=== PATIENT | female | born 1940 | race Caucasian/White ===

== ENCOUNTER 2020-06-01 08:56 | Outpatient (CLI) | payer MEDICARE, OTHER, SELFPAY ==
--- NOTE | 2020-06-01 09:18 | CT_ITS ---
WS: [id number] CT ABDOMEN CONTRAST TECHNIQUE: Contrast enhanced CT of the abdomen with coronal and sagittal reformatted images. CLINICAL INFORMATION: LEFT UPPER QUADRANT PAIN COMPARISON: CT 12 24,011 DLP: 608.[address] scans at [facility] use at least one of these dose optimization techniques: automat ed exposure control; mA and/or kV adjustment per patient size (includes targeted exams where dose is matched to clinical indication); or iterative reconstruction. FINDINGS: Mild diffuse fatty infiltration of the liver. Portal vein and splenic vein are patent. Small esophage al hiatal hernia. Lung bases are well aerated. Splenic granulomas. Adrenal glands are normal. Normal gallbladder. Normal pancreas. Small bilateral renal cysts. Normal right renal parenchymal enhancement . No hydronephrosis in right kidney. Left renal atrophy unchanged since 2010. 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 Dilatation of the renal pelvis. A few small left renal cysts. Peripelvic renal cy sts. Normal caliber abdominal aorta. Aortic calcification. Tiny fat-containing umbilical hernia. Mild lumb ar curve. Pedicle screw fixation L2-3 with interbody fusion. Hardware appears intact. CT/CT abdomen w con* [id number] IMPRESSION: 1. Left renal atrophy with chronic UPJ obstruction and dilatation renal pelvis is unchanged since 2010. 2. Small bilateral renal cysts. No hydronephrosis in right kidney. 3. Diffuse fatty infiltration of the liver. 4. Small esophageal hiatal hernia. 5. Prior postoperative changes lumbar spine.
[2020-06-01] MEDS: iohexol 300 mg/mL 50 mL Btl PO (09:23)
[2020-06-01] MEDS: iodixanol 320 mg/mL 100mL Btl IV (10:00)
== END 2020-06-01 08:57 | disposition home or self-care (01) ==
LOC: RADWPI 09:02
PROVIDERS: Family Provider Internal Medicine; Visit Provider Internal Medicine
DX: N26.1 Atrophy of kidney (terminal) (principal); N28.1 Cyst of kidney, acquired; K76.0 Fatty (change of) liver, not elsewhere classified; K44.9 Diaphragmatic hernia without obstruction or gangrene
CPT/HCPCS: 74160; Q9967

== ENCOUNTER 2020-07-02 12:07 | Emergency (ER) | payer MEDICARE, OTHER, SELFPAY ==
[2020-07-02 12:18] VITALS: BP 129/80; PULSE 92; RESP 16; TEMP 36.6; O2SAT 98; BMI 22.1
[2020-07-02 12:50] VITALS: BP 125/78; PULSE 82; RESP 16; O2SAT 98
[2020-07-02 12:51] VITALS: BP 125/78; PULSE 85; RESP 16; O2SAT 98
[2020-07-02 13:05] LABS: Add Urine Microscopic? YES; Bilirubin Urine Neg (Negative); Blood Urine 2+ (Negative); Glucose Urine UA Norm (Normal); Ketones Urine Negative (Negative); Leukocyte Esterase Urine Negative (Negative); Nitrate Urine Negative (Negative); Protein Urine 1+ (Negative); Specific Gravity, Urine 1.005 (1.005-1.030); Urine Appearance Clear (CLEAR); Urine Color Yellow (Yellow); Urobilinogen Urine Norm (Negative); pH Urine 7 (5-7)
--- NOTE | 2020-07-02 13:06 | ED_ITS ---
HPI - Abdominal Pain General: Chief Complaint: Abdominal Pain Stated Complaint: AB/BACK PAIN, nauseous Time Seen by Provider: 07/02/20 12:38 Source: patient and family Mode of arrival: ambulatory Limitations: no limitations History of Present Illness: HPI narrative: Patient is a 79-year-old female who presents to ED today along with her daughter for complaints of abdominal pain. Patient tells me she has had abdominal pain for approximately 2 weeks now but daughter states patient was complaining of severe pain last night prompting their visit today. 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 They apparently have an appointment to see Dr. Love on 07/13. Patient tells me she is having a weekend urine stream but is still able to urinate normally. She has no sensation of bladder fullness after voiding. She is having normal bowel movements. No vomiting. No fevers. MD elicited complaint: abdominal pain Onset (ago): hour(s) Associated Symptoms: Denies change in stool character, diarrhea, dysuria, fever(s), nausea and vomiting Review of Systems Const: Denies: fever(s), chills, body aches or fatigue Card: Denies: chest pain Resp: Denies: dyspnea GI: Reports: abdominal pain; Denies: nausea, vomiting, diarrhea or change in stool character : Reports: other (reports weak urine stream); Denies: flank pain, dysuria, urinary urgency or urinary incontinence Musc: Denies: back pain Skin/Breast: Denies: rash Neuro: Denies: headache(s), numbness in extremities, weakness in extremities or sensory changes Physical Exam Const: COMMON NORMALS: no acute distress, average body habitus, patient oriented x3, no limitations, healthy appearing, alert and well nourished GENERAL APPEARANCE: cooperative ORIENTATION/CONSCIOUSNESS: Yes awake, Yes oriented to person, Yes oriented to place and Yes oriented to time Resp: COMMON NORMALS: normal respiratory effort and clear to auscultation bilaterally AUSCULTATION: clear to auscultation bilaterally Cardio: COMMON NORMALS: regular rate and regular rhythm RATE: regular rate RHYTHM: regular rhythm GI: COMMON NORMALS: Normal to inspection, nondistended, normoactive bowel sounds present, Soft to palpation, No hepatosplenomegaly present and no masses PALPATION: Yes Soft to palpation, Yes Tenderness to palpation present (GI) (diffuse abdominal tenderness ), Yes Guarding due to palpation present (GI) and Yes No hepatosplenomegaly present : COMMON NORMALS: Yes no CVA tenderness BLADDER/KIDNEY EXAM: Yes no CVA tenderness Back/Pelvis: COMMON NORMALS: no CVA tenderness Extremity: COMMON NORMALS: no pedal edema Neuro: COMMON NORMALS: patient oriented x3 SENSORIUM/ORIENTATION: Yes alert, Yes oriented to person, Yes oriented to place and Yes oriented to time Skin: COMMON NORMALS: no rashes or lesions noted GENERAL SKIN EXAM: no rashes or lesions noted Course ED course: Patient's last CT scan showing left renal atrophy with chronic UPJ obstruction and dilatation to the renal pelvis that is unchanged since 2010 Vital Signs: Vital signs: Vital Signs Temperature 97.9 F 07/02/20 12:18 Pulse Rate 76 07/02/20 14:41 Respiratory Rate 15 07/02/20 14:41 Blood Pressure 109/79 07/02/20 14:41 Pulse Oximetry 98 07/02/20 14:41 MDM - Abdominal Pain MDM Narrative: Medical decision making narrative: Patient's last CT scan does not mention anything regarding a urethral stricture. I believe daughter is mistaken as CT scan instead showed chronic UPJ obstruction. I spoke to Dr. Keen in regards to her CT findings today who assured me that her obstruction and hydronephrosis and atrophy of the kidney look identical today as they have p reviously. Recommend they continue to follow-up with her appointment as scheduled with Dr. Love. Patient's vital signs are stable. Her lab work is non-concerning at this time. UA does have a small amount of blood but does not appear infected. At this time patient is stable for discharge with return to ED precautions. Lab Data: Labs: Lab Results 07/02/20 07/02/20 07/02/20 Range/Units 12:40 12:45 12:45 WBC 6.7 (4.0-10.0) 10^3/ uL RBC 4.48 (4.1-5.3) 10^6/u L Hgb 14.2 (11.5-15.3) g/dL Hct 44.2 (37.0-47.0) % MCV 98.7 (81-99) fL MCH 31.7 (28.0-34.0) pg MCHC 32.1 (30.0-36.0) g/dL RDW 13.2 (12.1-15.1) % Plt Count 178 (130-400) 10^3/c mm MPV 11.7 H (7.4-10.4) fL Neut % (Auto) 55.3 % Lymph % (Auto) 33.7 % [place] % (Auto) 8.4 % Eos % (Auto) 1.5 % Baso % (Auto) 0.6 % Neut # (Auto) 3.68 (1.8-7.7) 10^3/u L Lymph # (Auto) 2.2 (0.8-4.8) 10^3/u L [place] # (Auto) 0.6 (0.2-0.9) 10^3/u L Eos # (Auto) 0.1 (0.0-0.8) 10^3/u L Baso # (Auto) 0.0 (0.0-0.1) 10^3/u L Nucleated RBC % (a uto) 0 % Nucleated RBCs # 0.0 /100WBC Sodium 141 (136-145) mmol/L Potassium 4.5 (3.5-5.1) mmol/L Chloride 102 (98-107) mmol/L Carbon Dioxide 31 H (22-29) mmol/L Anion Gap 12.5 (5-19) BUN 16 (8-23) mg/dL Creatinine 1.2 H (0.5-0.9) mg/dL GFR Calculation Not Reportable Glucose 101 (65-115) mg/dL Calculated Osmolal ity 293 (285-295) mOsm/k g Calcium 9.9 (8.5-10.5) mg/dL Total Bilirubin 0.3 (0.15-1.2) mg/dL AST 18 (0-32) U/L ALT 11 (0-33) U/L Alkaline Phosphata se 99 (35-105) IU/L Total Protein 7.6 (6.6-8.7) g/dL Albumin 4.1 (3.5-5.2) g/dL Globulin 3.5 (1.3-4.6) g/dL Urine Color Yellow (Yellow) Urine Appearance Clear (CLEAR) Urine pH 7 (5-7) Ur Specific Gravit y 1.005 (1.005-1.030) Urine Protein 1+ H (Negative) Urine Glucose (UA) Norm (Normal) Urine Ketones Negative (Negative) Urine Blood 2+ H (Negative) Urine Nitrate Negative (Negative) Urine Bilirubin Neg (Negative) Urine Urobilinogen Norm (Negative) mg/dL Ur Leukocyte Loretta ase Negative (Negative) Urine RBC 0-4 H (0-2) /hpf Urine WBC 0-4 H (0-5) /hpf Ur Squamous Epith Cells 0-4 H (0-5) /hpf Amorphous Sediment Not Reportable Urine Bacteria 1+ H (NONE) /hpf Hyaline Casts 0-4 H /lpf Imaging Data ^: CT Abd/Pel: Radiologist's impression: [address] [address] [address] Scan Report Signed Patient: Arabella Constantino Unit #: [id number] : 1940 Age/Sex: 79 / F ADM Date: 07/02/20 Loc: ER Room/Bed: Attending Dr: Ordering Provider/Ordering MD: Meghana Chen Date of Service: 07/02/20 Procedure(s): CT abdomen pelvis w con* [id number] Accession Number(s): [id number] Report Number: [id number] WS: [id number] CT ABDOMEN AND PELVIS WITH CONTRAST HISTORY: abdominal pain TECHNIQUE: Imaging performed of the abdomen and pelvis with IV contrast. Single phase imaging of the abdomen. Coronal and sagittal reformats are submitted. All CT scans at [facility] use at least one of these dose optimization techniques: automated exposure control; mA and/or kV adjustment per patient size (includes targeted exams where dose is matched to clinical indication); or iterative reconstruction. IV CONTRAST: Visipaque 320; 95 mL IV. Oral contrast: No DLP: 386.05 mGy.cm COMPARISON: 06/01/2020 Lower thorax: Chronic emphysema at the lung bases. Heart is normal size. No hiatal hernia. Liver/biliary system: Normal size with no intrahepatic dilatation. Gallbladder: Normal. No gallstones or wall thickening. No pericholecystic fluid . Pancreas: Atrophied pancreas. Otherwise negative. Spleen: Granulomatous. Normal size. Adrenal glands: Normal. Right kidney: There is significant motion artifact and beam hardening artifact from the patient's spinal hardware. There is no obstruction or solid mass identified. Multiple RIGHT renal cysts. Left kidney: Severe atrophy and cortical thinning with numerous acquired cysts. Severe hydronephrosis with a high-grade UP junction obstruction resulting in atrophy of the kidney. No interval change. Aorta: Severe atherosclerosis aorta. Heavy calcification of the distal aorta with mild luminal narrowing and stenosis. Severe atherosclerotic plaque extends into the common iliac arteries. Lymphadenopathy: None. Free fluid: None. GI tract: No obstruction of the GI tract. No mucosal thickening. The appendix is not definite identified. No evidence for an acute inflammatory process. Abdominal wall: Unremarkable abdominal wall. No hernia. Pelvis: Normal. Bones: Extensive prior lumbar surgery at the L2-3 level. Posterior fusion hardware with lumbar scoliosis. CT/CT abdomen pelvis w con* [id number] IMPRESSION: 1. No acute abdominal or pelvic abnormality is identified. 2. Chronic LEFT UPJ obstruction with severe atrophy of the LEFT kidney. 3. Severe atherosclerosis aorta with stenosis distally. 4. No GI tract obstruction. Dictated By: Lucy Keen DO Signed By: Lucy Keen DO Signed Date/Time: 07/02/20 1502 DD/ 1456 Discharge Plan Discharge Patient Disposition: Home Clinical Impression: UPJ (ureteropelvic junction) obstruction, Abdominal pain of unknown cause Condition: Stable Prescriptions: No Action Tylenol 325 mg Tablet 325 - 650 mg PO Q4H PRN (Reason: Pain) RF: 0 lisinopril 20 mg tablet 20 mg PO DAILY@0800 RF: 0 tramadol 50 mg tablet 50 mg PO BID PRN (Reason: Pain) RF: 0 alprazolam 0.25 mg tablet 0.25 mg PO BID@0800,2100 RF: 0 amlodipine 10 mg Tablet 10 mg PO DAILY@0800 RF: 0 Discharge Orders: Discharge ED (Routine); Ordered 07/02/20 Ordered By: Meghana Chen Referrals: Nolan Collado DO [Primary Care Provider] - Patient Instructions: Abdominal Pain (ED) Activity Restrictions/Additional Instructions: As discussed you may keep your appointment with Dr. Love as scheduled. You may seek re-evaluation for worsening abdominal pain, repetitive episodes of vomiting or diarrhea, severe constipation, fevers, inability to urinate, or any other concerns you may have. I hope you begin to feel better soon. Coding Level of Care Code ED Carton Machine Operator for Vug Fwd Exam Detailed
--- NOTE | 2020-07-02 13:07 | PC.NURSE ---
called lab to inquire why labs not received, they state cannot see orders on their side
[2020-07-02 13:27] LABS: Bacteria Urine 1+ /hpf; Hyaline Casts Urine 0-4 /lpf; Squamous Epithelial Cell Urine 0-4 /hpf (0-5)
[2020-07-02 13:27] LABS: Basophils % 0.6 %; Eosinophils # 0.1 10^3/uL (0.0-0.8); Eosinophils % 1.5 %; Hematocrit 44.2 % (37.0-47.0); Hemoglobin 14.2 g/dL (11.5-15.3); Lymphocytes # 2.2 10^3/uL (0.8-4.8); Lymphocytes % 33.7 %; Mean Corpuscular HGB Conc 32.1 g/dL (30.0-36.0); Mean Corpuscular Hemoglobin 31.7 pg (28.0-34.0); Mean Corpuscular Volume 98.7 fL (81-99); Mean Platelet Volume 11.7 fL (7.4-10.4); Monocytes # 0.6 10^3/uL (0.2-0.9); Monocytes % 8.4 %; Neutrophils # 3.68 10^3/uL (1.8-7.7); Neutrophils % 55.3 %; Nucleated Red Blood Cells % 0 %; Platelet Count 178 10^3/cmm (130-400); Red Blood Count 4.48 10^6/uL (4.1-5.3); Red Cell Distribution Width 13.2 % (12.1-15.1); White Blood Count 6.7 10^3/uL (4.0-10.0)
[2020-07-02 13:29] LABS: Add Urine Culture? No; RBC Urine 0-4 /hpf (0-2); WBC Urine 0-4 /hpf (0-5)
[2020-07-02 13:40] LABS: Alanine Aminotransferase 11 U/L (0-33); Albumin Level 4.1 g/dL (3.5-5.2); Alkaline Phosphatase 99 IU/L (35-105); Anion Gap 12.5 (5-19); Aspartate Amino Transferase 18 U/L (0-32); Blood Urea Nitrogen 16 mg/dL (8-23); Calcium 9.9 mg/dL (8.5-10.5); Carbon Dioxide 31 mmol/L (22-29); Chloride 102 mmol/L (98-107); Globulin 3.5 g/dL (1.3-4.6); Glucose 101 mg/dL (65-115); Osmolality Calculated 293 mOsm/kg (285-295); Potassium 4.5 mmol/L (3.5-5.1); Sodium 141 mmol/L (136-145); Total Bilirubin 0.3 mg/dL (0.15-1.2); Total Protein 7.6 g/dL (6.6-8.7)
[2020-07-02 13:44] VITALS: BP 97/73; PULSE 77; RESP 18; O2SAT 96
--- NOTE | 2020-07-02 14:08 | CT_ITS ---
WS: [id number] CT ABDOMEN AND PELVIS WITH CONTRAST HISTORY: abdominal pain TECHNIQUE: Imaging performed of the abdomen and pelvis with IV contrast. Single phase imaging of the abdomen. Coronal and sagittal reformats are submitted. All CT scans at [facility] use at least one of these dose optimization techniques: automated exposure control; mA and/or kV adjustment per patient size (includes targeted exams where dose is matched to clinical indication); or iterativ e reconstruction. IV CONTRAST: Visipaque 320; 95 mL IV. Oral contrast: No DLP: 386.05 mGy.cm COMPARISON: 06/01/2020 Lower thorax: Chronic emphysema at the lung bases. Heart is normal size. No hiatal hernia. Liver/biliary system: Normal size with no intrahepatic dilatation. Gallbladder: Normal. No gallstones or wall thickening. No pericholecystic fluid. Pancreas: Atrophied pancreas. Otherwise negative. Spleen: Granulomatous. Normal size. Adrenal glands: Normal. Right kidney: There is significant motion artifact and beam hardening artifact from the patient's spi nal hardware. There is no obstruction or solid mass identified. Multiple RIGHT renal cysts. Left kidney: Severe atrophy and cortical thinning with numerous acquired cysts. Severe hydronephrosis with a high-grade UP junction obstruction resulting in atrophy of the kidney. No interval change. Aorta: Severe atherosclerosis aorta. Heavy calcification of the distal aorta with mild luminal narrow ing and stenosis. Severe atherosclerotic plaque extends into the common iliac arteries. Lymphadenopathy: None. Free fluid: None. GI tract: No obstruction of the GI tract. No mucosal thickening. The appendix is not definite identif ied. No evidence for an acute inflammatory process. Abdominal wall: Unremarkable abdominal wall. No hernia. Pelvis: Normal. Bones: Extensive prior lumbar surgery at the L2-3 level. Posterior fusion hardware with lumbar scolio sis. CT/CT abdomen pelvis w con* [id number] IMPRESSION: 1. No acute abdominal or pelvic abnormality is identified. 2. Chronic LEFT UPJ obstruction with severe atrophy of the LEFT kidney. 3. Severe atherosclerosis aorta with stenosis distally. 4. No GI tract obstruction.
[2020-07-02] MEDS: iodixanol 320 mg/mL 100mL Btl IV (14:35)
[2020-07-02 14:41] VITALS: BP 109/79; PULSE 76; RESP 15; O2SAT 98
[2020-07-02 15:41] VITALS: BP 117/88; PULSE 80; RESP 15; O2SAT 97
== END 2020-07-02 15:42 | disposition home or self-care (01) ==
PROVIDERS: Emergency Provider Physician Assistant; PCP Internal Medicine
DX: N13.5 Crossing vessel and stricture of ureter without hydronephrosis (principal)
CPT/HCPCS: 12345; 51798; 74177; 80053; 81001; 85025; 99283; Q9967

== ENCOUNTER → 2020-07-13 09:57 | Outpatient (BNVA) | payer MEDICARE, OTHER, SELFPAY | PROVIDERS: PCP Internal Medicine; Referring Provider Internal Medicine; Visit Provider Urology | DX: Q62.10 Congenital occlusion of ureter, unspecified (principal); N13.5 Crossing vessel and stricture of ureter without hydronephrosis; N26.1 Atrophy of kidney (terminal); R10.9 Unspecified abdominal pain; G89.29 Other chronic pain | CPT/HCPCS: 81003 ==

== ENCOUNTER 2020-08-27 10:28 | Outpatient (CLI) | payer MEDICARE, OTHER, SELFPAY ==
--- NOTE | 2020-08-27 10:30 | MM_ITS ---
WS: [id number] Bilateral screening digital mammogram, 08/27/2020 Clinical Data: SCREENING Comparison: None. Findings: The breast parenchymal pattern shows heterogeneous density. There is asymmetry of the lateral aspect of the right breast with numerous calcifications. A distinct mass is not seen. There are numerous joselyn donato calcifications throughout both breasts. No secondary signs of carcinoma are seen Impression: 1. Asymmetry of the lateral aspect of the right breast seen only on the right cc view. 2. Negative left breast. 3. Recommend right breast ultrasound with emphasis on the lateral aspect MM/[place] [id number] BIRADS: 0-Incomplete: Need additional imaging evaluation FOLLOW UP: See Report The CAD engineering drawings checker was used.
== END 2020-08-27 10:29 | disposition home or self-care (01) ==
LOC: RADSHAW 10:29
PROVIDERS: PCP Internal Medicine; Visit Provider Physician Assistant
DX: Z12.31 Encounter for screening mammogram for malignant neoplasm of breast (principal); N64.89 Other specified disorders of breast
CPT/HCPCS: 77067

== ENCOUNTER 2020-10-12 13:39 | Outpatient (CLI) | payer MEDICARE, OTHER, SELFPAY ==
--- NOTE | 2020-10-12 13:45 | US_ITS ---
WS: [id number] ULTRASOUND BREAST RIGHT TECHNIQUE: Ultrasound right breast focused area of concern. CLINICAL INFORMATION: INCONCLUSIVE MAMMO COMPARISON: Screening August 27, 2020 FINDINGS: Ultrasound right breast at the 8 to 11:00 position. Normal underlying parenchyma. No evidence of susp icious cystic or solid lesions. Incidental lymph node is noted. No lesions to target for biopsy. Jason mmend return to annual screening mammography. US/US breast RT limited* [id number] IMPRESSION: BI-RADS 2 benign Recommend return to annual screening mammography.
== END 2020-10-12 13:40 | disposition home or self-care (01) ==
LOC: RADSHAW 13:41
PROVIDERS: PCP Internal Medicine; Visit Provider Internal Medicine
DX: R92.8 Other abnormal and inconclusive findings on diagnostic imaging of breast (principal)
CPT/HCPCS: 76642

== ENCOUNTER → 2021-08-01 09:27 | Outpatient (BNVA) | payer MEDICARE, OTHER, SELFPAY | PROVIDERS: PCP Internal Medicine; Visit Provider Nurse Practitioner Family | DX: N26.1 Atrophy of kidney (terminal) (principal) | CPT/HCPCS: 81003 ==

== ENCOUNTER 2022-02-28 07:45 | Outpatient (CLI) | payer MEDICARE, SELFPAY ==
--- NOTE | 2022-02-28 07:52 | CT_ITS ---
WS: [id number] CT ABDOMEN AND PELVIS WITH CONTRAST HISTORY: LEFT HYDRONEPHROSIS, no LEFT hydronephrosis. Abdominal fullness. TECHNIQUE: Imaging performed of the abdomen and pelvis with IV contrast. Single phase imaging of the abdomen. Coronal and sagittal reformats are submitted. All CT scans at [facility] use at [facility] one of these dose optimization techniques: automated exposure control; mA and/or kV adjustment per patient size (includes targeted exams where dose is matched to clinical indication); or iterative re construction. IV CONTRAST: Visipaque 320; 95 mL IV. Oral contrast: None. DLP: 806.08 mGy.cm COMPARISON: 07/02/2020 Lower thorax: Lung bases are clear. Heart is normal size. Small hiatal hernia. Liver/biliary system: Normal size with no intrahepatic dilatation. Gallbladder: Normal. No gallstones or wall thickening. No pericholecystic fluid. Pancreas: Normal pancreas. No mass or duct dilatation. Spleen: Normal spleen with granulomata. Adrenal glands: Normal. Right kidney: Normal size kidney. Multiple cortical cysts. Very slight prominence of the renal pelvis . No solid mass identified. No obstructing process. Left kidney: Severe cortical thinning and atrophy of the LEFT kidney. Kidney measures 8.9 cm in lengt h. Severe chronic hydronephrosis with multiple cortical cysts. No excretion from the kidney identifie d. Chronic LEFT UP junction obstruction has been described on multiple prior examinations. Aorta: Heavy calcification within the aorta. Increasing circumferential calcification below the level of the renal arteries. Stenosis with the lumen measuring 5.2 mm at the bifurcation. Calcifications c ontinue into the iliac arteries bilaterally with multifocal areas of stenosis, greater on the LEFT. N o complete occlusions identified. There is also moderate stenosis involving the origin of the celiac axis with atherosclerotic plaque at the origin of the SMA. Lymphadenopathy: None. Free fluid: None. GI tract: Nondistended stomach. Mild edema and wall thickening involving the duodenal C-loop. No smal l bowel obstruction. Normal appendix. Mild constipation and scattered diverticula. Abdominal wall: Unremarkable abdominal wall. No hernia. Pelvis: Well-distended urinary bladder. Prior hysterectomy. No free fluid or adenopathy. Bones: Posterior lumbar fusion with interbody spacer at L2-3. Degenerative scoliosis lumbar spine wit h asymmetric disc space narrowing. CT/CT abdomen pelvis w con* [id number] IMPRESSION: 1. No acute abdominal or pelvic abnormalities are identified. 2. Status post hysterectomy. 3. Chronic severe LEFT hydronephrosis secondary to a UP junction obstruction. 4. Bilateral renal cysts. 5. Extensive atherosclerosis aorta with a high-grade stenosis near the aortic bifurcation. Multifocal areas of stenosis within the aorta and extending throug h the iliac arteries into the femoral artery. Patient is at risk for ischemic d isease to the lower extremities and the GI tract. 6. Mild soft tissue edema involving the antrum and proximal small bowel. No pn eumatosis or obstruction. Consider mild gastritis, duodenitis. No ulcer identif ied and no pneumatosis. 7. No adenopathy or ascites.
[2022-02-28 08:43] LABS: Blood Urea Nitrogen 14 mg/dL (8-23)
[2022-02-28] MEDS: iodixanol 320 mg/mL 100mL Btl IV (08:52)
== END 2022-02-28 07:46 | disposition home or self-care (01) ==
LOC: RAD 07:47
PROVIDERS: Radiology Diagnostic Radiology; PCP Internal Medicine; Visit Provider Internal Medicine
DX: N13.30 Unspecified hydronephrosis (principal); Z90.710 Acquired absence of both cervix and uterus; Q61.02 Congenital multiple renal cysts; I70.0 Atherosclerosis of aorta
CPT/HCPCS: 74177; 82565; 84520

== ENCOUNTER 2022-07-08 12:05 | Emergency (ER) | payer MEDICARE, OTHER, SELFPAY ==
[2022-07-08 12:16] VITALS: BP 122/83; PULSE 113; RESP 16; TEMP 36.9; O2SAT 94
--- NOTE | 2022-07-08 12:58 | CTR_ITS ---
PROCEDURE INFORMATION: Exam: CT Abdomen And Pelvis With Contrast Exam date and time: 07/08/2022 2:17 PM Age: 81 years old Clinical indication: Abdominal pain; Generalized; Prior surgery; Surgery type: Lumbar, hyster; Additional info: Abd pain TECHNIQUE: Imaging protocol: Computed tomography of the abdomen and pelvis with contrast. Radiation optimization: All CT scans at this facility use at least one of these dose optimization techniques: automated exposure control; mA and/or kV adjustment per patient size (includes targeted exams where dose is matched to clinical indication); or iterative reconstruction. Contrast material: OMNI 350; Contrast volume: 100 ml; Contrast route: INTRAVENOUS (IV); Other protocol: This patient has received [address] and 0 known cardiac nuclear medicine studies in the 12 months prior to the current study. COMPARISON: CT abdomen pelvis w con* [id number] 02/28/2022 8:46 AM RADIATION DOSE METRICS: Total DLP (mGy-cm): 371.88 FINDINGS: Liver: Normal. No mass. Gallbladder and bile ducts: Normal. No calcified stones. No ductal dilation. Pancreas: Normal. No ductal dilation. Spleen: Normal. No splenomegaly. Adrenal glands: Normal. No mass. Kidneys and ureters: Bilateral left greater than right renal cysts. Left chronic severe hydronephrosis again seen likely secondary to a UPJ obstruction. Stomach and bowel: Constipation. Diverticulosis without diverticulitis. Small hiatal hernia. Mildly prominent fluid in the small bowel and ascending colon may reflect a mild enterocolitis in the appropriate clinical setting. Appendix: No evidence of appendicitis. Intraperitoneal space: Unremarkable. No free air. No significant fluid collection. Vasculature: Diffuse atherosclerotic disease again seen throughout aorta with high-grade stenosis near the bifurcation. Proximal celiac, superior mesenteric and bilateral renal arteries large amount of eccentric atherosclerotic calcification with up to 50-60% luminal narrowing suspected with contrast seen distally. Lymph nodes: Unremarkable. No enlarged lymph nodes. Urinary bladder: Unremarkable as visualized. Reproductive: Unremarkable as visualized. Bones/joints: Lumbar spine surgical hardware. Soft tissues: Unremarkable. CT/CT abdomen pelvis w con* [id number] IMPRESSION: 1. Mildly prominent fluid in the small bowel and ascending colon may reflect a mild enterocolitis in the appropriate clinical setting. 2. Bilateral left greater than right renal cysts. 3. Left chronic severe hydronephrosis again seen likely secondary to a UPJ obstruction. 4. Diffuse atherosclerotic disease again seen throughout aorta with high-grade stenosis near the bifurcation. 5. Constipation. 6. Diverticulosis without diverticulitis. 7. Lumbar spine surgical hardware. 8. Proximal celiac, superior mesenteric and bilateral renal arteries large amount of eccentric atherosclerotic calcification with up to 50-60% luminal narrowing suspected with contrast seen distally. 9. Small hiatal hernia. COMMENTS: Consistent with the [employer]'s Incidental Findings Committee white paper (J Am Andrew Radiol 2018): Any incidental renal lesion less than 1 cm or classified as too small to characterize, or any incidental cystic renal lesion characterized as simple-appearing, is likely benign. No follow-up imaging is recommended for these lesions per consensus recommendations based on imaging criteria.
[2022-07-08 13:00] VITALS: BP 114/82; PULSE 101; RESP 16; O2SAT 91
--- NOTE | 2022-07-08 13:02 | W.ED.ABDPA2 ---
HPI - Abdominal Pain General: Chief Complaint: Abdominal Pain Stated Complaint: low abd pain Time Seen by Provider: 07/08/22 12:51 Source: patient Mode of arrival: ambulatory Limitations: no limitations History of Present Illness: 81-year-old female states she been having right lower quadrant pain since 2 AM states pain is been sharp in nature rates it a 6 out of 10 states she been having some difficulty urinating as well she had kidney stones in the past she denies any vomiting or diarrhea denies any fevers. Denies any worsening proving factors. Associated Symptoms: Denies chills, dysuria and fever(s) Review of Systems Const: Denies: fever(s), chills, body aches or change in appetite Eyes: Denies: blurry vision or eye discomfort ENMT: Denies: throat pain or dental pain Card: Denies: chest pain Resp: Denies: dyspnea GI: Reports: abdominal pain : Denies: dysuria Musc: Denies: neck pain or back pain Skin/Breast: Denies: rash Neuro: Denies: headache(s) Psych: Denies: depression Rufino/Lymph: Denies: easy bruising All/Imm: Denies: urticaria PFSH ED PFSH: Medical History Chronic abdominal pain Left renal atrophy Ureteropelvic junction (UPJ) obstruction, left Surgical History H/O: hysterectomy History of back surgery S/P ablation of atrial flutter Family History Mother , 50 Cancer Colon Father , 80 Bleeding disorder Aneurysm Social History Smoking and tobacco status: current every day smoker Alcohol intake: never Marital status: / Current occupational status: retired Physical Exam Const: COMMON NORMALS: no acute distress, patient oriented x3 and healthy appearing HENMT: COMMON NORMALS: normocephalic and atraumatic HEAD & SCALP: normocephalic and atraumatic Eye: COMMON NORMALS: Equal, round and reactive pupils present and EOMs intact bilaterally PUPIL: Yes Equal, round and reactive pupils present Neck/C-Spine: COMMON NORMALS: full ROM and supple Chest: COMMONS NORMALS: normal inspection of the chest and normal palpation of entire chest wall Resp: COMMON NORMALS: normal respiratory effort, No retractions, No use of accessory muscles and clear to auscultation bilaterally AUSCULTATION: clear to auscultation bilaterally Cardio: COMMON NORMALS: regular rate, regular rhythm and No murmurs present (Cardio) RATE: regular rate RHYTHM: regular rhythm GI: COMMON NORMALS: Normal to inspection, nondistended, normoactive bowel sounds present, Soft to palpation and no masses PALPATION: Yes Soft to palpation and Yes Tenderness to palpation present (GI) Details: RLQ Extremity: COMMON NORMALS: normal to inspection and full ROM Neuro: COMMON NORMALS: patient oriented x3, moves all extremities and no focal motor deficits Psych: COMMON NORMALS: mental status grossly normal, Normal thought process present and cooperative THOUGHT PROCESS: Normal thought process present Skin: COMMON NORMALS: no rashes or lesions noted and no wounds GENERAL SKIN EXAM: no rashes or lesions noted Course Vital Signs: Vital signs: Vital Signs Temperature 98.5 F 07/08/22 12:16 Pulse Rate 91 07/08/22 14:30 Respiratory Rate 16 07/08/22 14:30 Blood Pressure 128/79 07/08/22 14:30 Pulse Oximetry 94 07/08/22 14:30 MDM - Abdominal Pain Medical Decision Making Patient presents with abdominal pain likely from a colitis her blood work here is normal exam is benign at discharge we will place on Augmentin she has had some difficulty urinating she is able to urinate here we will get her follow-up with urology she is return if worsening she understands agrees to plan. Lab Data 07/08/22 13:15 07/08/22 13:15 Labs/Radiology: Radiology Impressions Abdomen/Pelvis CT 07/08/22 12:58 IMPRESSION: 1. Mildly prominent fluid in the small bowel and ascending colon may reflect a mild enterocolitis in the appropriate clinical setting. 2. Bilateral left greater than right renal cysts. 3. Left chronic severe hydronephrosis again seen likely secondary to a UPJ obstruction. 4. Diffuse atherosclerotic disease again seen throughout aorta with high-grade stenosis near the bifurcation. 5. Constipation. 6. Diverticulosis without diverticulitis. 7. Lumbar spine surgical hardware. 8. Proximal celiac, superior mesenteric and bilateral renal arteries large amount of eccentric atherosclerotic calcification with up to 50-60% luminal narrowing suspected with contrast seen distally. 9. Small hiatal hernia. COMMENTS: Consistent with the [employer]'s Incidental Findings Committee white paper (J Am Andrew Radiol 2018): Any incidental renal lesion less than 1 cm or classified as too small to characterize, or any incidental cystic renal lesion characterized as simple-appearing, is likely benign. No follow-up imaging is recommended for these lesions per consensus recommendations based on imaging criteria. Laboratory Results WBC 13.5 10^3/uL (4.0-10.0) H 07/08/22 13:15 RBC 4.45 10^6/uL (4.1-5.3) 07/08/22 13:15 Hgb 13.3 g/dL (11.5-15.3) 07/08/22 13:15 Hct 42.2 % (37.0-47.0) 07/08/22 13:15 MCV 94.8 fl (81-99) 07/08/22 13:15 MCH 29.9 pg (28.0-34.0) 07/08/22 13:15 MCHC 31.5 g/dL (30.0-36.0) 07/08/22 13:15 RDW 14.0 % (12.1-15.1) 07/08/22 13:15 Plt Count 199 10^3/cmm (130-400) 07/08/22 13:15 MPV 11.0 fL (7.4-10.4) H 07/08/22 13:15 Neut % (Auto) 76.6 % 07/08/22 13:15 Lymph % (Auto) 13.7 % 07/08/22 13:15 [place] % (Auto) 7.6 % 07/08/22 13:15 Eos % (Auto) 1.5 % 07/08/22 13:15 Baso % (Auto) 0.2 % 07/08/22 13:15 Neut # (Auto) 10.30 10^3/uL (1.8-7.7) H 07/08/22 13:15 Lymph # (Auto) 1.9 10^3/uL (0.8-4.8) 07/08/22 13:15 [place] # (Auto) 1.0 10^3/uL (0.2-0.9) H 07/08/22 13:15 Eos # (Auto) 0.2 10^3/uL (0.0-0.8) 07/08/22 13:15 Baso # (Auto) 0.0 10^3/uL (0.0-0.1) 07/08/22 13:15 Nucleated RBC % (auto) 0 % 07/08/22 13:15 Nucleated RBCs # 0.0 /100WBC 07/08/22 13:15 Sodium 137 mmol/L (136-145) 07/08/22 13:15 Potassium 4.2 mmol/L (3.5-5.1) 07/08/22 13:15 Chloride 97 mmol/L (98-107) L 07/08/22 13:15 Carbon Dioxide 28 mmol/L (22-29) 07/08/22 13:15 Anion Gap 16.2 (5-19) 07/08/22 13:15 BUN 16 mg/dL (8-23) 07/08/22 13:15 Creatinine 1.1 mg/dL (0.5-0.9) H 07/08/22 13:15 GFR Calculation Not Reportable 07/08/22 13:15 Glucose 89 mg/dL (65-115) 07/08/22 13:15 Calculated Osmolality 285 mOsm/kg (285-295) 07/08/22 13:15 Calcium 10.0 mg/dL (8.5-10.5) 07/08/22 13:15 Total Bilirubin 0.3 mg/dL (0.15-1.2) 07/08/22 13:15 AST 23 U/L (0-32) 07/08/22 13:15 ALT 13 U/L (0-33) 07/08/22 13:15 Alkaline Phosphatase 97 U/L (35-105) 07/08/22 13:15 Total Protein 7.2 g/dL (6.6-8.7) 07/08/22 13:15 Albumin 3.9 g/dL (3.5-5.2) 07/08/22 13:15 Globulin 3.3 g/dL (1.3-4.6) 07/08/22 13:15 Lipase 36 U/L (13-60) 07/08/22 13:15 Urine Color Yellow (Yellow) 07/08/22 14:46 Urine Appearance Sl hazy (CLEAR) A 07/08/22 14:46 Urine pH 8 (5-7) H 07/08/22 14:46 Ur Specific [place] 1.015 (1.005-1.030) 07/08/22 14:46 Urine Protein Neg (Negative) 07/08/22 14:46 Urine Glucose (UA) Norm (Normal) 07/08/22 14:46 Urine Ketones Negative (Negative) 07/08/22 14:46 Urine Blood Neg (Negative) 07/08/22 14:46 Urine Nitrate Negative (Negative) 07/08/22 14:46 Urine Bilirubin Neg (Negative) 07/08/22 14:46 Prot Sulfosalicylic Acd Negative (Negative) 07/08/22 14:46 Urine Urobilinogen Norm mg/dL (Negative) 07/08/22 14:46 Ur Leukocyte Esterase Negative (Negative) 07/08/22 14:46 Urine RBC None /hpf (0-2) 07/08/22 14:46 Urine WBC Rare /hpf (0-5) 07/08/22 14:46 Ur Squamous Epith Cells None /hpf (0-5) 07/08/22 14:46 Amorphous Sediment 1+ /hpf 07/08/22 14:46 Urine Bacteria Trace /hpf (NONE) 07/08/22 14:46 Discharge Plan Discharge Patient Disposition: Home Clinical Impression: Abdominal pain, Colitis Condition: Stable Prescriptions: New hydrocodone-acetaminophen 5-325 mg tablet 1 tab PO Q6H PRN (Reason: pain) Qty: 14 0RF ondansetron 4 mg tablet,disintegrating 4 mg PO Q6H PRN (Reason: nausea and vomiting) Qty: 14 0RF Augmentin 500-125 mg tablet 1 tab PO Q12H Qty: 14 0RF No Action amlodipine 2.5 mg tablet 2.5 mg PO DAILY cyclobenzaprine 5 mg tablet 5 mg PO TID PRN (Reason: muscle spasm) Qty: 10 0RF Tylenol 325 mg Tablet 325 - 650 mg PO Q4H PRN (Reason: Pain) tramadol 50 mg tablet 50 mg PO BID PRN (Reason: Pain) alprazolam 0.25 mg tablet 0.25 mg PO BID@0800,2100 Discharge Orders: Discharge ED (Routine); Ordered 07/08/22 Ordered By: Jaime Lee Referrals: Nolan Collado DO [Primary Care Provider] - 1-3 days Discharge Diet: Advance as tolerated Discharge Activity: Resume usual activity Patient Instructions: Abdominal Pain (ED), Colitis (ED), Opioid Safety Coding Level of Care Code ED Special Warfare Boat Operator for Chg Fwd Exam Comprehensive
[2022-07-08] MEDS: sodium chloride 0.9% 1,000 ML 999 ML IV (13:11)
[2022-07-08 13:12] VITALS: RESP 16; O2SAT 96
[2022-07-08] MEDS: ondansetron 2 mg/ML SDV 2 mL 4 MG IVP (13:12)
[2022-07-08] MEDS: morphine 4 mg/mL SDV 1 mL IVP (13:12)
[2022-07-08 13:30] VITALS: BP 129/79; PULSE 94; RESP 16; O2SAT 92
[2022-07-08 13:32] LABS: Basophils % 0.2 %; Eosinophils # 0.2 10^3/uL (0.0-0.8); Eosinophils % 1.5 %; Hematocrit 42.2 % (37.0-47.0); Hemoglobin 13.3 g/dL (11.5-15.3); Lymphocytes # 1.9 10^3/uL (0.8-4.8); Lymphocytes % 13.7 %; Mean Corpuscular HGB Conc 31.5 g/dL (30.0-36.0); Mean Corpuscular Hemoglobin 29.9 pg (28.0-34.0); Mean Corpuscular Volume 94.8 fl (81-99); Monocytes % 7.6 %; Neutrophils % 76.6 %; Nucleated Red Blood Cells % 0 %; Platelet Count 199 10^3/cmm (130-400); Red Blood Count 4.45 10^6/uL (4.1-5.3); White Blood Count 13.5 10^3/uL (4.0-10.0)
[2022-07-08 13:56] LABS: Alanine Aminotransferase 13 U/L (0-33); Albumin Level 3.9 g/dL (3.5-5.2); Alkaline Phosphatase 97 U/L (35-105); Anion Gap 16.2 (5-19); Aspartate Amino Transferase 23 U/L (0-32); Blood Urea Nitrogen 16 mg/dL (8-23); Carbon Dioxide 28 mmol/L (22-29); Chloride 97 mmol/L (98-107); Globulin 3.3 g/dL (1.3-4.6); Glucose 89 mg/dL (65-115); Lipase 36 U/L (13-60); Osmolality Calculated 285 mOsm/kg (285-295); Potassium 4.2 mmol/L (3.5-5.1); Sodium 137 mmol/L (136-145); Total Bilirubin 0.3 mg/dL (0.15-1.2); Total Protein 7.2 g/dL (6.6-8.7)
[2022-07-08] MEDS: iohexol 350 mg/mL 500 mL Btl (per mL) IV (14:21)
[2022-07-08 14:30] VITALS: BP 128/79; PULSE 91; RESP 16; O2SAT 94
[2022-07-08 15:23] LABS: Add Urine Microscopic? YES; Bilirubin Urine Neg (Negative); Blood Urine Neg (Negative); Glucose Urine UA Norm (Normal); Ketones Urine Negative (Negative); Leukocyte Esterase Urine Negative (Negative); Nitrate Urine Negative (Negative); Protein Urine Neg (Negative); Specific Gravity, Urine 1.015 (1.005-1.030); Sulfosalicylic Acid Urine Negative (Negative); Urine Appearance SL Hazy (CLEAR); Urine Color Yellow (Yellow); Urobilinogen Urine Norm (Negative); pH Urine 8 (5-7)
[2022-07-08 15:24] LABS: Bacteria Urine TRACE /hpf; WBC Urine RARE /hpf (0-5)
[2022-07-08 15:25] LABS: Amorphous Sediment Urine 1+ /hpf
[2022-07-08 15:26] LABS: Add Urine Culture? No
[2022-07-08] MEDS: amoxicillin-clav 875-125 mg Tablet 1 TAB PO (15:50)
[2022-07-08 15:58] VITALS: BP 119/84; PULSE 90; O2SAT 90
--- NOTE | 2022-07-10 11:10 | DCPLANNER ---
Addendum entered by Elena Hernandez 07/20/22 15:12: customer service manager received the following message from the urology clinic regarding following up appointment: Dr Love is limited on the diagnosis he is taking as a referral. Please send patient elsewhere. Patient could also be evaluated by her PCP. customer service manager called patient to explain that caseworker protective services referred patient back to urology, and caseworker protective services was told to refer patient elsewhere or patient could follow up with her primary care physician. customer service manager called phone number [phone] - unable to speak with patient at this time, due to patient not accepting phone calls at this time. customer service manager did call patients primary care physician and explained this to the staff [place] [facility]. Addendum entered by Elena Hernandez 07/12/22 10:46: customer service manager received the following message from the urology clinic: Please send to Dr. Hodges-Dr. Love is out of town. customer service manager called patient to inform patient that Dr. Love was out of town and that his office asked me to refer patient to at [facility]. Patient stated that she would wait for Dr. Love when he was back in the office. customer service manager sent the urology clinic clinic message stating that patient would like to wait for Dr. Love. Original Note: customer service manager had message to schedule a follow up appointment for patient with urology. customer service manager sent patients information to the front office staff at urology. Patients information will be printed and reviewed. Clinic will call patient with appointment information.
== END 2022-07-08 16:01 | disposition home or self-care (01) ==
PROVIDERS: Emergency Provider Emergency Medicine; PCP Internal Medicine
DX: K52.9 Noninfective gastroenteritis and colitis, unspecified (principal); F17.210 Nicotine dependence, cigarettes, uncomplicated
CPT/HCPCS: 74177; 80053; 81001; 83690; 85025; 96361; 96374; 96375; 99285; J2270; J2405; J7030; Q9967

== ENCOUNTER 2023-02-15 11:05 | Outpatient (CLI) | payer MEDICARE, OTHER, SELFPAY ==
--- NOTE | 2023-02-15 11:15 | MM_ITS ---
WS: [id number] Bilateral screening 3D tomosynthesis digital mammogram, 02/15/2023 Clinical Data: SCREENING Comparison: 08/27/2020 Findings: The breast parenchymal pattern shows fibroglandular tissue. No spiculated masses or clustered calcifi cations are seen. There are no secondary signs of carcinoma. Impression: 1. Negative bilateral mammogram unchanged. 2. Recommend annual screening mammograms. MM/[place] [id number] BIRADS: 1-Negative FOLLOW UP: 1 Year Follow-up The CAD report checker was used.
== END 2023-02-15 11:06 | disposition home or self-care (01) ==
PROVIDERS: PCP Internal Medicine; Visit Provider Internal Medicine
DX: Z12.31 Encounter for screening mammogram for malignant neoplasm of breast (principal)
CPT/HCPCS: 77063; 77067

== ENCOUNTER 2023-03-12 14:22 | Outpatient (CLI) | payer MEDICARE, OTHER, SELFPAY ==
--- NOTE | 2023-03-12 14:30 | XR_ITS ---
WS: [id number] SCREENING DEXA SCAN OB10 CLINICAL INFORMATION: POSTMENOPAUSAL COMPARISON: None. FINDINGS: The L1-L4 bone mineral density measures . This corresponds to a T score score of and Z score of . Left femoral neck bone mineral density measures 0.706 g/cm2. This corresponds to a T score of -2.4 an d Z score of -0.2. Right femoral neck bone mineral density measures 0.637 g/cm2. This corresponds to a T score -2.9of an d Z score of -0.7. Mean femoral neck bone mineral density measures 0.671 g/cm2. This corresponds to a T score of -2.7 an d Z score of -0.5. IMPRESSION: Osteoporosis LEFT forearm. Osteoporosis femoral necks. Patient's FRAX calculated 10 year probability for major osteoporotic fracture is 26.5% and osteoporot ic hip fracture is 15.2%.
== END 2023-03-12 14:23 | disposition home or self-care (01) ==
PROVIDERS: PCP Internal Medicine; Visit Provider Internal Medicine
DX: Z78.0 Asymptomatic menopausal state (principal); M81.8 Other osteoporosis without current pathological fracture
CPT/HCPCS: 77080

== ENCOUNTER 2023-10-18 06:48 | Outpatient (CLI) | payer MEDICARE, SELFPAY ==
--- NOTE | 2023-10-18 07:16 | MR_ITS ---
WS: [id number] MRI LUMBAR SPINE NONCONTRAST TECHNIQUE: Sagittal T1, T2 and STIR imaging. Axial T1 and T2 imaging. CLINICAL INFORMATION: MUSCLE WEAKNESS COMPARISON: MRI 2009 FINDINGS: Lumbar scoliosis. Postoperative changes pedicle screw fixation L2-3 is new since 2008. L1-L2: Slight retrolisthesis L1 on L2 with disc space narrowing. Osteophytic ridging. Narrowing of th e RIGHT subarticular recess with moderate RIGHT foraminal narrowing. This is progressed compared to p revious. L2-L3: Interbody fusion. Spinal canal and foramen are patent. L3-L4: Mild annular bulging. Narrowing of the subarticular recess bilaterally. Mild central canal shelley nosis progressed compared to previous. Mild LEFT and no RIGHT foraminal narrowing. Mild facet arthrop athy. L4-L5: Mild disc bulging with impingement LEFT subarticular recess and traversing LEFT L5 nerve root. Mild central canal stenosis. Mild to moderate LEFT and no significant RIGHT foraminal narrowing. Mod erate facet arthropathy. L5-S1: Mild disc bulging. Spinal canal is patent. Moderate RIGHT and no LEFT foraminal narrowing. Mil d facet arthropathy. Slight impingement on the traversing RIGHT S1 nerve root in the subarticular rec ess. Dysplastic multicystic LEFT kidney partially visualized. Partially visualized RIGHT renal cyst. MR/MR lumbar spine wo con* [id number] IMPRESSION: 1. Lumbar scoliosis with pedicle screw fixation L2-3 new since 2008. Spondylit ic changes have progressed. 2. Disc bulging L1-2 with slight retrolisthesis and moderate RIGHT foraminal n arrowing. Impingement on the exiting RIGHT L1 nerve root. Narrowing of the RIGH T subarticular recess at this level. 3. Mild central canal stenosis L3-4 progressed compared to previous impinges t he subarticular recess bilaterally with mild LEFT foraminal narrowing. 4. Mild central canal stenosis L4-5 with impingement on the LEFT subarticular recess with mild to moderate LEFT L4-5 foraminal narrowing. 5. Moderate RIGHT L5-S1 foraminal narrowing.
== END 2023-10-18 06:49 | disposition home or self-care (01) ==
LOC: RAD 06:48
PROVIDERS: PCP Internal Medicine; Visit Provider Internal Medicine
DX: M62.81 Muscle weakness (generalized) (principal); M51.36 Other intervertebral disc degeneration, lumbar region; M48.061 Spinal stenosis, lumbar region without neurogenic claudication; M48.07 Spinal stenosis, lumbosacral region
CPT/HCPCS: 72148

== ENCOUNTER 2023-11-05 14:42 | Observation (INO) | payer MEDICARE, SELFPAY ==
[2023-11-05] VITALS (13 sets, daily range): BP systolic 151–193; BP diastolic 87–110; PULSE 82–97; RESP 12–20; TEMP 36.6–37.2; O2SAT 92–99; BMI 25.0
[2023-11-05 15:48] LABS: Basophils % 0.2 %; Eosinophils % 0.1 %; Hematocrit 40.3 % (36-47); Lymphocytes # 0.8 10^3/uL (0.8-4.8); Lymphocytes % 7.9 %; Mean Corpuscular HGB Conc 33.7 g/dL (30-55); Mean Corpuscular Hemoglobin 31.7 pg (27-33); Mean Corpuscular Volume 93.9 fl (85-98); Mean Platelet Volume 11.1 fL (7.4-10.4); Monocytes # 0.6 10^3/uL (0.2-0.9); Monocytes % 5.9 %; Neutrophils # 8.84 10^3/uL (1.8-7.7); Neutrophils % 85.6 %; Nucleated Red Blood Cells % 0 %; Platelet Count 209 10^3/cmm (157-399); Red Blood Count 4.29 10^6/uL (3.85-5.65); White Blood Count 10.33 10^3/uL (3.29-11.43)
[2023-11-05 16:09] LABS: Alanine Aminotransferase 8 U/L (0-33); Alkaline Phosphatase 92 U/L (35-105); Anion Gap 17.1 (5-19); Aspartate Amino Transferase 16 U/L (0-32); Blood Urea Nitrogen 16 mg/dL (8-23); Calcium 9.8 mg/dL (8.5-10.5); Carbon Dioxide 27 mmol/L (22-29); Chloride 97 mmol/L (98-107); Creatinine Clr Calc Pharmacy 40.1891; Globulin 3.8 g/dL (1.3-4.6); Glucose 125 mg/dL (65-115); Lipase 39 U/L (13-60); Osmolality Calculated 289 mOsm/kg (285-295); Potassium 3.1 mmol/L (3.5-5.1); Sodium 138 mmol/L (136-145); Total Bilirubin 0.4 mg/dL (0.15-1.2); Total Protein 7.8 g/dL (6.6-8.7)
--- NOTE | 2023-11-05 16:12 | CTR_ITS ---
PROCEDURE INFORMATION: Exam: CT Abdomen And Pelvis With Contrast Exam date and time: 11/05/2023 4:37 PM Age: 83 years old Clinical indication: Abdominal pain; Generalized; Prior surgery; Surgery date: 6+ months; Surgery type: Lumbar, hyster; Additional info: Abd pain with guarding TECHNIQUE: Imaging protocol: Computed tomography of the abdomen and pelvis with contrast. Radiation optimization: All CT scans at this facility use at least one of these dose optimization techniques: automated exposure control; mA and/or kV adjustment per patient size (includes targeted exams where dose is matched to clinical indication); or iterative reconstruction. Contrast material: OMNI 350; Contrast volume: 100 ml; Contrast route: INTRAVENOUS (IV); COMPARISON: CT abdomen pelvis w con* [id number] 07/08/2022 2:17 PM RADIATION DOSE METRICS: Total DLP (mGy-cm): 384.6 FINDINGS: Liver: No acute findings. Gallbladder and bile ducts: No acute findings. Pancreas: No ductal dilation. Spleen: No splenomegaly. Adrenal glands: No mass. Kidneys and ureters: No stones or hydronephrosis. Bilateral renal cysts and left renal atrophy chronic severe left hydronephrosis. Stomach and bowel: No obstruction. Appendix: The appendix is dilated and fluid distended with multiple appendicoliths including a large appendicolith at the origin. No significant surrounding inflammation or loculated collection. Intraperitoneal space: No free air. No significant fluid collection. Vasculature: Extensive multifocal atherosclerotic disease without aneurysm. Lymph nodes: No enlarged lymph nodes. Urinary bladder: Incompletely distended. Reproductive: No acute findings. Bones/joints: No acute findings. Soft tissues: No acute findings. CT/CT abdomen pelvis w con* [id number] IMPRESSION: Developing acute, uncomplicated appendicitis.
[2023-11-05] MEDS: morphine 4 mg/mL SDV 1 mL 2 MG IVP (16:25)
[2023-11-05] MEDS: ondansetron 2 mg/ML SDV 2 mL 4 MG IVP ×2 (16:25→21:59)
[2023-11-05] MEDS: sodium chloride 0.9% 1,000 ML 999 ML IV (16:29)
[2023-11-05] MEDS: iohexol 350 mg/mL 500 mL Btl (per mL) IV (16:47)
[2023-11-05 17:40] LABS: Urine Appearance Clear (CLEAR); Urine Color Yellow (Yellow); pH Urine 7 (5-7)
[2023-11-05 17:41] LABS: Add Urine Culture? No; Add Urine Microscopic? YES; Bacteria Urine TRACE /hpf; Bilirubin Urine Neg (Negative); Blood Urine 2+ (Negative); Glucose Urine UA Norm (Normal); Ketones Urine Negative (Negative); Leukocyte Esterase Urine Negative (Negative); Nitrate Urine Negative (Negative); Protein Urine Trace (Negative); RBC Urine 0-4 /hpf (0-2); Urobilinogen Urine Norm (Negative)
--- NOTE | 2023-11-05 18:05 | ED_ITS ---
HPI - Abdominal Pain 2 General: Chief Complaint: Abdominal Pain Stated Complaint: LB pain, ABD pain Time Seen by Provider: 11/05/23 15:21 Source: patient and family Mode of arrival: ambulatory Limitations: no limitations History of Present Illness: Patient reports lower abdominal pain starting last night and worse this morning and progressing to severe this afternoon when she presents. Also reports some nausea but no vomiting. Denies any diarrhea. Think she might be possibly constipated. Of note she does have chronic back pain that is being worked up outpatient. Review of Systems 2 General: Reports: 10 or more systems reviewed and unremarkable except in HPI and below PFSH ED 2 PFSH: Medical History Chronic abdominal pain Left renal atrophy Ureteropelvic junction (UPJ) obstruction, left Surgical History H/O: hysterectomy History of back surgery S/P ablation of atrial flutter Family History Mother , 50 Cancer Colon Father , 80 Bleeding disorder Aneurysm Social History Smoking and tobacco/nicotine status: current every day tobacco/nicotine user Alcohol intake: never Substance/Drug Use: never Marital status: / Current occupational status: retired Physical Exam 2 Const: COMMON NORMALS: no acute distress, average body habitus, patient oriented x3, healthy appearing, alert and well nourished GENERAL APPEARANCE: well kempt and well developed HENMT: COMMON NORMALS: normocephalic, atraumatic, external ears normal and moist oral mucous membranes HEAD & SCALP: normocephalic and atraumatic E XTERNAL EAR: Yes external ears normal Eye: COMMON NORMALS: Equal, round and reactive pupils present, EOMs intact bilaterally and conjunctivae normal CONJUNCTIVA: Yes conjunctivae normal P UPIL: Yes Equal, round and reactive pupils present Neck/C-Spine: COMMON NORMALS: full ROM, no lymphadenopathy and supple Chest: CHEST: Yes Symmetrical chest wall rise and No Surgical scars present (Chest) Resp: COMMON NORMALS: normal respiratory effort, No retractions, No use of accessory muscles and clear to auscultation bilaterally AUSCULTATION: clear to auscultation bilaterally Cardio: COMMON NORMALS: regular rate, regular rhythm, S1 normal heart sound present, S2 normal heart sound present, No gallops present (Cardio), No clicks present (Cardio), No murmurs present (Cardio) and No rub (Cardio) RATE: r egular rate RHYTHM: regular rhythm HEART SOUNDS: S1 normal heart sound present, S2 normal heart sound present and no murmurs PERIPHERAL PULSES: o ther (Radial pulses 2+ and symmetric) GI: COMMON NORMALS: Soft to palpation, non-tender and no masses INSPECTION: No abdominal distension PALPATION: Yes Soft to palpation, No Guarding due to palpation present (GI) and No Rebound tenderness present : COMMON NORMALS: Yes no CVA tenderness BLADDER/KIDNEY EXAM: Yes no CVA tenderness Back/Pelvis: COMMON NORMALS: no CVA tenderness Extremity: COMMON NORMALS: normal to inspection, full ROM, capillary refill normal and no clubbing, cyanosis or edema Neuro: COMMON NORMALS: patient oriented x3 SENSORIUM/ORIENTATION: Yes alert Psych: APPEARANCE: Yes well kempt Skin: COMMON NORMALS: no rashes or lesions noted, no wounds, turgor normal and no jaundice GENERAL SKIN EXAM: no rashes or lesions noted and turgor normal Course 2 Reevaluation(s): Reevaluation #1: Updated family and patient on CT results. Time: 17:58 Consultations: Consultation #1: Spoke with General Surgery Dr. Bryant, he will come see the patient. Time: 18:00 Consultation #2: Dr. Bryant has agreed to admit pt to OR for appendicitis Time: 18:25 Vital Signs: Vital signs: Vital Signs Temperature 98.2 F 11/05/23 15:05 Pulse Rate 89 11/05/23 18:00 Respiratory Rate 16 11/05/23 17:08 Blood Pressure 193/100 11/05/23 18:00 Pulse Oximetry 95 11/05/23 18:00 Oxygen Delivery Me thod Room Air 11/05/23 15:05 MDM - Abdominal Pain Medical Decision Making Pain comes in with lower abdominal pain hernia across the lower section. Tender on exam. Pain relieved with 2 of IV morphine. Able to urinate eventually and urine is clean. CT scan of the abdomen performed secondary to the tenderness. CT scan reviewed and asked to see some right lower quadrant stranding and some calcified intraluminal tissue. Radiology report reveals acute appendicitis and appendicoliths. Patient seen by general surgery and they have decided to take her to the OR for the appendicitis. Differential Diagnosis Likely abdominal pain, constipation, diverticulitis, gastroenteritis and pancreatitis Medical Records I reviewed the patient's medical records. Lab Data I reviewed the patient's lab results. 11/05/23 15:32 11/05/23 15:32 Labs/Radiology: Radiology Impressions Abdomen/Pelvis CT 11/05/23 16:12 IMPRESSION: Developing acute, uncomplicated appendicitis. Laboratory Results WBC 10.33 10^3/uL (3.29-11.43) 11/05/23 15:32 RBC 4.29 10^6/uL (3.85-5.65) 11/05/23 15:32 Hgb 13.60 g/dL (11.27-16.99) 11/05/23 15:32 Hct 40.3 % (36-47) 11/05/23 15:32 MCV 93.9 fl (85-98) 11/05/23 15:32 MCH 31.7 pg (27-33) 11/05/23 15:32 MCHC 33.7 g/dL (30-55) 11/05/23 15:32 RDW 13.0 % (12.1-15.1) 11/05/23 15:32 Plt Count 209 10^3/cmm (157-399) 11/05/23 15:32 MPV 11.1 fL (7.4-10.4) H 11/05/23 15:32 Neut % (Auto) 85.6 % 11/05/23 15:32 Lymph % (Auto) 7.9 % 11/05/23 15:32 [place] % (Auto) 5.9 % 11/05/23 15:32 Eos % (Auto) 0.1 % 11/05/23 15:32 Baso % (Auto) 0.2 % 11/05/23 15:32 Neut # (Auto) 8.84 10^3/uL (1.8-7.7) H 11/05/23 15:32 Lymph # (Auto) 0.8 10^3/uL (0.8-4.8) 11/05/23 15:32 [place] # (Auto) 0.6 10^3/uL (0.2-0.9) 11/05/23 15:32 Eos # (Auto) 0.0 10^3/uL (0.0-0.8) 11/05/23 15:32 Baso # (Auto) 0.0 10^3/uL (0.0-0.1) 11/05/23 15:32 Nucleated RBC % (auto) 0 % 11/05/23 15:32 Nucleated RBCs # 0.0 /100WBC 11/05/23 15:32 Sodium 138 mmol/L (136-145) 11/05/23 15:32 Potassium 3.1 mmol/L (3.5-5.1) L 11/05/23 15:32 Chloride 97 mmol/L (98-107) L 11/05/23 15:32 Carbon Dioxide 27 mmol/L (22-29) 11/05/23 15:32 Anion Gap 17.1 (5-19) 11/05/23 15:32 BUN 16 mg/dL (8-23) 11/05/23 15:32 Creatinine 1.0 mg/dL (0.5-0.9) H 11/05/23 15:32 GFR Calculation Not Reportable 11/05/23 15:32 Glucose 125 mg/dL (65-115) H 11/05/23 15:32 Calculated Osmolality 289 mOsm/kg (285-295) 11/05/23 15:32 Calcium 9.8 mg/dL (8.5-10.5) 11/05/23 15:32 Total Bilirubin 0.4 mg/dL (0.15-1.2) 11/05/23 15:32 AST 16 U/L (0-32) 11/05/23 15:32 ALT 8 U/L (0-33) 11/05/23 15:32 Alkaline Phosphatase 92 U/L (35-105) 11/05/23 15:32 Total Protein 7.8 g/dL (6.6-8.7) 11/05/23 15:32 Albumin 4.0 g/dL (3.5-5.2) 11/05/23 15:32 Globulin 3.8 g/dL (1.3-4.6) 11/05/23 15:32 Lipase 39 U/L (13-60) 11/05/23 15:32 Urine Color Yellow (Yellow) 11/05/23 17:06 Urine Appearance Clear (CLEAR) 11/05/23 17:06 Urine pH 7 (5-7) 11/05/23 17:06 Ur Specific [place] 1.010 (1.005-1.030) 11/05/23 17:06 Urine Protein Trace (Negative) 11/05/23 17:06 Urine Glucose (UA) Norm (Normal) 11/05/23 17:06 Urine Ketones Negative (Negative) 11/05/23 17:06 Urine Blood 2+ (Negative) H 11/05/23 17:06 Urine Nitrate Negative (Negative) 11/05/23 17:06 Urine Bilirubin Neg (Negative) 11/05/23 17:06 Urine Urobilinogen Norm mg/dL (Negative) 11/05/23 17:06 Ur Leukocyte Esterase Negative (Negative) 11/05/23 17:06 Urine RBC 0-4 /hpf (0-2) H 11/05/23 17:06 Urine WBC None /hpf (0-5) 11/05/23 17:06 Ur Squamous Epith Cells None /hpf (0-5) 11/05/23 17:06 Amorphous Sediment Not Reportable 11/05/23 17:06 Urine Bacteria Trace /hpf (NONE) 11/05/23 17:06 All radiology interpretation(s) finalized by discharge Discharge Plan Discharge Patient Disposition: Admitted As Inpatient Clinical Impression: Acute appendicitis Qualifiers: Acute appendicitis type: with generalized peritonitis Appendicitis gangrene presence: without gangrene Appendicitis perforation presence: without perforation Appendicitis abscess presence: without abscess Qualified Code(s): K 35.200 - Acute appendicitis with generalized peritonitis, without perforation or abscess Condition: Stable Coding Level of Care Code ED Senior Medical Technologist for Laura Gregory
[2023-11-05] MEDS: piperacillin-tazobactam 3.375 GM in sodium chloride 0.9% (plus) 50 ML IV (18:07)
[2023-11-05] MEDS: labetalol 5 mg/mL SDV 20mL 10 MG IVP (18:25)
--- NOTE | 2023-11-05 18:26 | ECG_ITS ---
[facility] Test Date: 2023-11-05 Pat Name: Arabella Constantino Department: Room: Gender: Female [employer] Miller: : 1940 Requested By: Merlin Cox Order Number: [id number] Elias Colindres MD: Perry Brooks M.D. Measurements Intervals [place] Rate: 83 P: 67 AR: 193 QRS: 39 QRSD: 90 T: 67 QT: 394 QTc: 464 Interpretive Statements SINUS RHYTHM WITH SINUS ARRHYTHMIA INDETERMINATE AXIS Compared to ECG 04/19/2019 17:34:20 Indeterminate axis now present Left-axis deviation no longer present Electronically Signed On 11-06-2023 16:51:08 CDT by Perry Brooks M.D. [id number]
--- NOTE | 2023-11-05 18:29 | P.HP_ITS ---
Providers/Chief Complaint 2 Admitting Physician: Manny Primary Care Provider: Nolan Collado DO Chief Complaint: LB pain, ABD pain History of Present Illness Arabella Constantino is a 83 year old female who presents to the hospital complaining of right lower quadrant abdominal pain for the last 12 hours. Patient has history of chronic abdominal pain but this time pain suddenly worsened. She denies any fever or chills, has had some nausea but no vomiting, she is constipated. Review of Systems 2 General: Reports: 10 or more systems reviewed and unremarkable except in HPI and below Medications/Allergies Home Medications Medication Instructions Recorded Confirmed Last Taken Type acetaminophen 325 mg tablet 325 - 650 mg PO Q4H PRN Pain 07/02/20 07/01/22 Unknown History (Tylenol) alprazolam 0.25 mg tablet 0.25 mg PO BID@0800,2100 07/02/20 07/01/22 07/02/20 History tramadol 50 mg tablet 50 mg PO BID PRN Pain 07/02/20 07/01/22 07/02/20 History amlodipine 2.5 mg tablet 2.5 mg PO DAILY 08/01/21 07/01/22 Unknown History cyclobenzaprine 5 mg tablet 5 mg PO TID PRN muscle spasm #10 07/01/22 07/01/22 Unknown Rx tabs hydrocodone 5 mg-acetaminophen 325 1 tab PO Q6H PRN pain #14 tabs 07/08/22 Unknown Rx mg tablet ondansetron 4 mg disintegrating 4 mg PO Q6H PRN nausea and 07/08/22 Unknown Rx tablet vomiting #14 tabs doxycycline hyclate 100 mg tablet 100 mg PO BID 7 days #14 tabs 04/29/23 04/29/23 Unknown Rx prednisone 20 mg tablet 20 mg PO DAILY 5 days #5 tabs 04/29/23 04/29/23 Unknown Rx Allergies Allergy/AdvReac Type Severity Reaction Status Date / Time diazepam [From Valium] Allergy Unknown Verified 11/05/23 15:12 hydralazine Allergy ADR-Nausea Verified 04/29/23 11:27 promethazine [From Phenergan] Allergy ADR-Confusi Verified 04/29/23 11:27 on PFSH Acute 2 PFSH: Medical History Chronic abdominal pain Left renal atrophy Ureteropelvic junction (UPJ) obstruction, left Surgical History H/O: hysterectomy History of back surgery S/P ablation of atrial flutter Family History Mother , 50 Cancer Colon Father , 80 Bleeding disorder Aneurysm Social History Smoking and tobacco/nicotine status: current every day tobacco/nicotine user Alcohol intake: never Substance/Drug Use: never Marital status: / Current occupational status: retired Vitals/I&O/Wt Last Vital Signs Temp 98.2 F 11/05/23 15:05 Pulse 89 11/05/23 18:00 Resp 16 11/05/23 17:08 BP 193/100 11/05/23 18:00 Pulse Ox 95 11/05/23 18:00 O2 Del Method Room Air 11/05/23 15:05 11/05/23 11/05/23 11/05/23 06:59 14:59 22:59 Intake Total 1000 / 1000 Balance 1000 / 1000 Weight last 48 hrs Weight 135 lb Physical Exam 2 Narrative: General : Patient is well developed , no acute distress, oriented x3 Head : Normal cephalic, a-traumatic. Nose : Mucous membranes are without erythema. Lungs : Equal chest rise bilaterally, no use of accessory muscles, trachea is midline. CV : Rate and rhythm are normal. Abdomen : Soft, there is tenderness to palpation to the right lower quadrant, no peritoneal signs. Extremities : No edema. Upper extremities are normal bilaterally. Back : non-tender to palpation, no CVA tenderness. Data 11/05/23 15:32 11/05/23 15:32 A&P Assessment and plan (1) Chronic abdominal pain: (2) Acute appendicitis: Qualifiers: Acute appendicitis type: with generalized peritonitis Appendicitis abscess presence: without abscess Appendicitis gangrene presence: without gangrene Appendicitis perforation presence: without perforation Qualified Code(s): K35.200 - Acute appendicitis with generalized peritonitis, without perforation or abscess Plan After complete history, physical examination and review of all available clinical data the following is my assessment. This is a 83-year-old female with acute appendicitis verified by imaging. Retrospective review of previous CT scans of the abdomen showed no evidence of appendicoliths or appendiceal dilation, therefore this appears to be a new acute episode. I have had extensive discussion with the patient regarding her diagnosis, I have explained that acute appendicitis is very rare in her age group and while this may represent intestinal obstruction from an appendicolith other pathology should be ruled out. I have offered her a laparoscopic possible open appendectomy, I have discussed all risk and benefits of the procedure including the risk of bleeding or infection of the wounds, risk of infection on the deep space, injury to surrounding structures including the colon the small bowel bladder blood vessels and ureter, need for additional interventions, sepsis and . Patient shows understanding and wishes to proceed. Of note patient is otherwise healthy but has hypertension and currently BP has been noted to be quite elevated by ER team, she will receive IV labetalol for this. We will proceed with appendectomy tonight, will likely keep the patient in-house overnight for monitoring and postoperative observation. -NPO -Zosyn -Pain Control -IVF -OR Today Attestations 2 Medical Necessity Statement*: Patient will require 24 hours of hospital stay for management of acute appendicitis. Coding Level of Care Code [facility] Diagnoses Chronic abdominal pain R10.9; G89.29 Acute appendicitis K35.200 Acute appendicitis type: with generalized peritonitis Appendicitis abscess presence: without abscess Appendicitis gangrene presence: without gangrene Appendicitis perforation presence: without perforation
--- NOTE | 2023-11-05 18:33 | W.ED.ABDPA2 ---
HPI - Abdominal Pain General: Chief Complaint: Abdominal Pain Stated Complaint: LB pain, ABD pain Time Seen by Provider: 11/05/23 15:21 Source: patient and family Mode of arrival: ambulatory Limitations: no limitations History of Present Illness: see previous [facility] PFSH: Medical History Chronic abdominal pain Left renal atrophy Ureteropelvic junction (UPJ) obstruction, left Surgical History H/O: hysterectomy History of back surgery S/P ablation of atrial flutter Family History Mother , 50 Cancer Colon Father , 80 Bleeding disorder Aneurysm Social History Smoking and tobacco/nicotine status: current every day tobacco/nicotine user Alcohol intake: never Substance/Drug Use: never Marital status: / Current occupational status: retired Course Vital Signs: Vital signs: Vital Signs Temperature 98.2 F 11/05/23 15:05 Pulse Rate 89 11/05/23 18:00 Respiratory Rate 16 11/05/23 17:08 Blood Pressure 193/100 11/05/23 18:00 Pulse Oximetry 95 11/05/23 18:00 Oxygen Delivery Me thod Room Air 11/05/23 15:05 MDM - Abdominal Pain Medical Decision Making see previous note. this is an addendum only to document pre-op EKG Lab Data 11/05/23 15:32 11/05/23 15:32 Labs/Radiology: Radiology Impressions Abdomen/Pelvis CT 11/05/23 16:12 IMPRESSION: Developing acute, uncomplicated appendicitis. Laboratory Results WBC 10.33 10^3/uL (3.29-11.43) 11/05/23 15:32 RBC 4.29 10^6/uL (3.85-5.65) 11/05/23 15:32 Hgb 13.60 g/dL (11.27-16.99) 11/05/23 15:32 Hct 40.3 % (36-47) 11/05/23 15:32 MCV 93.9 fl (85-98) 11/05/23 15:32 MCH 31.7 pg (27-33) 11/05/23 15:32 MCHC 33.7 g/dL (30-55) 11/05/23 15:32 RDW 13.0 % (12.1-15.1) 11/05/23 15:32 Plt Count 209 10^3/cmm (157-399) 11/05/23 15:32 MPV 11.1 fL (7.4-10.4) H 11/05/23 15:32 Neut % (Auto) 85.6 % 11/05/23 15:32 Lymph % (Auto) 7.9 % 11/05/23 15:32 [place] % (Auto) 5.9 % 11/05/23 15:32 Eos % (Auto) 0.1 % 11/05/23 15: Baso % (Auto) 0.2 % 11/05/23 15:32 Neut # (Auto) 8.84 10^3/uL (1.8-7.7) H 11/05/23 15:32 Lymph # (Auto) 0.8 10^3/uL (0.8-4.8) 11/05/23 15:32 [place] # (Auto) 0.6 10^3/uL (0.2-0.9) 11/05/23 15:32 Eos # (Auto) 0.0 10^3/uL (0.0-0.8) 11/05/23 15:32 Baso # (Auto) 0.0 10^3/uL (0.0-0.1) 11/05/23 15: Nucleated RBC % (auto) 0 % 11/05/23 15: Nucleated RBCs # 0.0 /100WBC 11/05/23 15:32 Sodium 138 mmol/L (136-145) 11/05/23 15:32 Potassium 3.1 mmol/L (3.5-5.1) L 11/05/23 15:32 Chloride 97 mmol/L (98-107) L 11/05/23 15:32 Carbon Dioxide 27 mmol/L (22-29) 11/05/23 15:32 Anion Gap 17.1 (5-19) 11/05/23 15:32 BUN 16 mg/dL (8-23) 11/05/23 15:32 Creatinine 1.0 mg/dL (0.5-0.9) H 11/05/23 15:32 GFR Calculation Not Reportable 11/05/23 15:32 Glucose 125 mg/dL (65-115) H 11/05/23 15:32 Calculated Osmolality 289 mOsm/kg (285-295) 11/05/23 15:32 Calcium 9.8 mg/dL (8.5-10.5) 11/05/23 15:32 Total Bilirubin 0.4 mg/dL (0.15-1.2) 11/05/23 15:32 AST 16 U/L (0-32) 11/05/23 15:32 ALT 8 U/L (0-33) 11/05/23 15:32 Alkaline Phosphatase 92 U/L (35-105) 11/05/23 15:32 Total Protein 7.8 g/dL (6.6-8.7) 11/05/23 15:32 Albumin 4.0 g/dL (3.5-5.2) 11/05/23 15:32 Globulin 3.8 g/dL (1.3-4.6) 11/05/23 15:32 Lipase 39 U/L (13-60) 11/05/23 15:32 Urine Color Yellow (Yellow) 11/05/23 17:06 Urine Appearance Clear (CLEAR) 11/05/23 17:06 Urine pH 7 (5-7) 11/05/23 17:06 Ur Specific [place] 1.010 (1.005-1.030) 11/05/23 17:06 Urine Protein Trace (Negative) 11/05/23 17:06 Urine Glucose (UA) Norm (Normal) 11/05/23 17:06 Urine Ketones Negative (Negative) 11/05/23 17:06 Urine Blood 2+ (Negative) H 11/05/23 17:06 Urine Nitrate Negative (Negative) 11/05/23 17:06 Urine Bilirubin Neg (Negative) 11/05/23 17:06 Urine Urobilinogen Norm mg/dL (Negative) 11/05/23 17:06 Ur Leukocyte Esterase Negative (Negative) 11/05/23 17:06 Urine RBC 0-4 /hpf (0-2) H 11/05/23 17:06 Urine WBC None /hpf (0-5) 11/05/23 17:06 Ur Squamous Epith Cells None /hpf (0-5) 11/05/23 17:06 Amorphous Sediment Not Reportable 11/05/23 17:06 Urine Bacteria Trace /hpf (NONE) 11/05/23 17:06 All radiology interpretation(s) finalized by discharge EKG Data EKG 1: I personally reviewed and interpreted this EKG as follows: EKG interpretation date: 11/05/23 EKG interpretation time: 18:31 Prior EKG tracings: not available for review Interpretation: Sinus at 83. borderline DE interval at 193. Normal QRS and QT QTc. No ST elevation or depression. Discharge Plan Discharge Patient Disposition: Admitted As Inpatient Clinical Impression: Acute appendicitis Qualifiers: Acute appendicitis type: with generalized peritonitis Appendicitis gangrene presence: without gangrene Appendicitis perforation presence: without perforation Appendicitis abscess presence: without abscess Qualified Code(s): K35.200 - Acute appendicitis with generalized peritonitis, without perforation or abscess Condition: Stable Coding Level of Care Code ED Media Specialist for Laura Gregory
--- NOTE | 2023-11-05 18:52 | ANES.PREANE2 ---
Pre-Anesthetic Assessment Height/Weight: Height 1.65 m Weight 61.235 kg Temp Pulse Resp BP Pulse Ox O2 Del Method 98.2 F 89 16 193/100 95 Room Air 11/05/23 15:05 11/05/23 18:00 11/05/23 17:08 11/05/23 18:00 11/05/23 18:00 11/05/23 15:05 Operation Date: 11/05/23 19:00 Proposed Procedures p Laparoscopic Appendectomy(Not Applicable) - Marino Bryant MD Familial anesthetic complications: None Was Beta Elroy taken within 24 hours: N/A Was Clonidine taken within 24 hours: N/A Last intake: sips of water approx 2 hrs ago Social Tobacco and No alcohol Exam alert, oriented x 3, clear to auscultation bilaterally and regular rate & rhythm Airway Mallampati: Class I Dentition: false Pulmonary Chronic Obstructive Pulmonary Disease CV/HEM Hypertension Chronic Renal Insufficiency (L renal atrophy (history kidney stone)) Anesthetic Plan ASA status: 2 Anesthesia: General Risk of > 500 ml blood loss (7ml/kg in children): No Medications/Allergies Home Medications Medication Instructions Recorded Confirmed Last Taken Type acetaminophen 325 mg tablet 325 - 650 mg PO Q4H PRN Pain 07/02/20 07/01/22 Unknown History (Tylenol) alprazolam 0.25 mg tablet 0.25 mg PO BID@0800,2100 07/02/20 07/01/22 07/02/20 History tramadol 50 mg tablet 50 mg PO BID PRN Pain 07/02/20 07/01/22 07/02/20 History amlodipine 2.5 mg tablet 2.5 mg PO DAILY 08/01/21 07/01/22 Unknown History cyclobenzaprine 5 mg tablet 5 mg PO TID PRN muscle spasm #10 07/01/22 07/01/22 Unknown Rx tabs hydrocodone 5 mg-acetaminophen 325 1 tab PO Q6H PRN pain #14 tabs 07/08/22 Unknown Rx mg tablet ondansetron 4 mg disintegrating 4 mg PO Q6H PRN nausea and 07/08/22 Unknown Rx tablet vomiting #14 tabs doxycycline hyclate 100 mg tablet 100 mg PO BID 7 days #14 tabs 04/29/23 04/29/23 Unknown Rx prednisone 20 mg tablet 20 mg PO DAILY 5 days #5 tabs 04/29/23 04/29/23 Unknown Rx Allergies Allergy/AdvReac Type Severity Reaction Status Date / Time diazepam [From Valium] Allergy Unknown Verified 11/05/23 15:12 hydralazine Allergy ADR-Nausea Verified 04/29/23 11:27 promethazine [From Phenergan] Allergy ADR-Confusi Verified 04/29/23 11:27 on [facility] Anesthesia Medical History Chronic abdominal pain Left renal atrophy Ureteropelvic junction (UPJ) obstruction, left Surgical History H/O: hysterectomy History of back surgery S/P ablation of atrial flutter Family History Mother , 50 Cancer Colon Father , 80 Bleeding disorder Aneurysm Social History Smoking and tobacco/nicotine status: current every day tobacco/nicotine user Alcohol intake: never Substance/Drug Use: never Marital status: / Current occupational status: retired Data Anesthesia 11/05/23 15:32 11/05/23 15:32 Short CBC 11/05/23 Range/Units 15:32 WBC 10.33 (3.29-11.43) 10^3/uL Hgb 13.60 (11.27-16.99) g/dL Hct 40.3 (36-47) % MCV 93.9 (85-98) fl Plt Count 209 (157-399) 10^3/cmm Neut % (Auto) 85.6 % Neut # (Auto) 8.84 H (1.8-7.7) 10^3/uL BMP 11/05/23 15:32 Sodium 138 Potassium 3.1 L Chloride 97 L Carbon Dioxide 27 BUN 16 Creatinine 1.0 H Glucose 125 H Calcium 9.8 Liver Function 11/05/23 Range/Units 15:32 Total Bilirubin 0.4 (0.15-1.2) mg/dL AST 16 (0-32) U/L ALT 8 (0-33) U/L Alkaline Phosphatase 92 (35-105) U/L Albumin 4.0 (3.5-5.2) g/dL Urine 11/05/23 Range/Units 17:06 Urine Color Yellow (Yellow) Urine Appearance Clear (CLEAR) Urine pH 7 (5-7) Ur Specific [place] 1.010 (1.005-1.030) Urine Protein Trace (Negative) Urine Glucose (UA) Norm (Normal) Urine Ketones Negative (Negative) Urine Nitrate Negative (Negative) Urine Bilirubin Neg (Negative) Ur Leukocyte Esterase Negative (Negative) Urine RBC 0-4 H (0-2) /hpf Urine WBC None (0-5) /hpf Cardiac Studies: No Data to Display
[2023-11-05] MEDS: lidocaine-epi 1% 20 mL INJ INJECTION (19:21)
[2023-11-05] MEDS: BUPivacaine 0.25% INJ 10 mL INJECTION ×2 (19:23→19:24)
--- NOTE | 2023-11-05 19:54 | P.OP_ITS ---
Operative Report Date of procedure: November 05, 2023 Pre-op diagnosis: Acute appendicitis Post-op diagnosis: Acute suppurative appendicitis, adhesive band at the level of the terminal ileum Post-op findings: Appendix was grossly inflamed, there was clear fluid from the mid appendix, no purulence noted, the base was healthy. There was an adhesive band constricting the terminal ileum, this band came from the mesentery of the small bowel towards the remanent of the left fallopian tube. Procedure done: Laparoscopic appendectomy, laparoscopic lysis of additions Specimens removed/disposition: Appendix, adhesive band Surgeon: Marino Bryant MD Financial Foundations Associate: DARNELL OR Staff Estimated blood loss: 5 Complications: none apparent Brief History: This is a 83-year-old female with history of chronic abdominal pain who presented with acute worsening of her abdominal pain. CT scan show evidence of acute appendicitis, after a complete history and physical examination I decided to offer her a laparoscopic possible open appendectomy. Patient agreed to discussion of risk and benefits Procedure: Patient was brought into the OR, she was placed in the supine position. General anesthesia was given. The abdomen was prepped and draped in the usual sterile fashion. Timeout was conducted. The abdomen was accessed via infraumbilical incision measuring 1.5 cm with an open technique. A 12 mm Trocar Was Placed and Fixed to the Fascia with #0 Vicryl. Initial Pneumoperitoneum Was Successful and No Evidence of Visceral Injury during Entry Was Noted. Additional 5 Mm Trocars Were Placed under Direct Visualization in the Left Lower Quadrant and Suprapubic Region. I Then Placed My Attention to the Right Lower Quadrant, before Identifying the Appendix It Was Apparent That Than That This Had Been Was at the Level of the Terminal Ileum and Appeared to Be Constricting the Terminal Ileum. Despite This No Proximal Dilation Was Noted. The Adhesive Band Originated on the Mesentery of the Small Bowel and Travel to the Remanent of the Left Fallopian Tube. The Adhesive Band Was Carefully Lysed with LigaSure and the Lysed Adhesive Band Was Sent to Pathology. I Then Identified the Appendix, This Appeared to Be Very Inflamed and Dilated, upon Mobilization of the Appendix I Noticed That There Was Some Clear Separation from the Midportion of the Appendix, This Was Not Consistent with Purulence As the Fluid Was Clear in Nature. I Then Took down the Mesoappendix to the Base with Ligasure. The base was healthy. I transected the appendix at this level using a 45 mm blue load Endo BOY stapler. The base was hemostatic and the staple line appeared healthy. The appendix was retrieved through the umbilical trocar site in an Endo Catch bag and sent to pathology. The appendiceal bed was suction from all suppurative fluid as well as the pelvis and the area was irrigated. Hemostasis was verified. I then proceeded to close the umbilical trocar site under direct visualization using a 0 Vicryl with a Dalton-Deja suture passer. The suprapubic trocar was removed under direct visualization and the left lower quadrant trocar was used to evacuate the pneumoperitoneum and subsequently removed. The wounds were then closed in layers using #4-0 Monocryl for the skin and Dermabond was applied. At the end of the procedure all counts were correct, the patient tolerated well the procedure and was transferred to the PACU in stable condition.
--- NOTE | 2023-11-05 20:40 | ANE.PACU2 ---
Inpatient post-anesthesia follow up: Airway intact: Yes Vital signs: Temperature 98.2 F Pulse Rate 80 Respiratory Rate 18 Blood Pressure 130/73 Pulse Oximetry 95 Oxygen Delivery Me thod Room Air Oxygen Flow Rate 6 Fraction of Inspir ed Oxygen Hydration adequate: Yes Nausea and vomiting: No Pain level: 1 Mental status: Baseline
[2023-11-05] MEDS: acetaminophen 325 mg Tablet PO (21:38)
[2023-11-05] MEDS: HYDROmorphone 1 mg/mL INJ 1 mL 0.400000000000000022 MG IVP (21:59)
[2023-11-06] MEDS: acetaminophen 325 mg Tablet PO ×2 (02:42→09:00)
[2023-11-06 04:00] VITALS: BP 121/72; PULSE 81; RESP 17; TEMP 37.1; O2SAT 94
[2023-11-06 05:39] LABS: Basophils % 0.1 %; Hematocrit 36.5 % (36-47); Lymphocytes # 0.6 10^3/uL (0.8-4.8); Lymphocytes % 4.1 %; Mean Corpuscular HGB Conc 34.2 g/dL (30-55); Mean Corpuscular Hemoglobin 32.6 pg (27-33); Mean Corpuscular Volume 95.1 fl (85-98); Mean Platelet Volume 11.2 fL (7.4-10.4); Monocytes # 0.5 10^3/uL (0.2-0.9); Monocytes % 3.7 %; Neutrophils # 12.95 10^3/uL (1.8-7.7); Neutrophils % 91.7 %; Nucleated Red Blood Cells % 0 %; Platelet Count 184 10^3/cmm (157-399); Red Blood Count 3.84 10^6/uL (3.85-5.65); Red Cell Distribution Width 13.2 % (12.1-15.1); White Blood Count 14.14 10^3/uL (3.29-11.43)
[2023-11-06 06:07] LABS: Anion Gap 13.6 (5-19); Blood Urea Nitrogen 15 mg/dL (8-23); Calcium 8.3 mg/dL (8.5-10.5); Carbon Dioxide 26 mmol/L (22-29); Chloride 105 mmol/L (98-107); Creatinine Clr Calc Pharmacy 38.2297; Glucose 191 mg/dL (65-115); Osmolality Calculated 298 mOsm/kg (285-295); Potassium 3.6 mmol/L (3.5-5.1); Sodium 141 mmol/L (136-145)
[2023-11-06] MEDS: piperacillin-tazobactam 3.375 GM in sodium chloride 0.9% (plus) 50 ML IV (06:30)
[2023-11-06 07:19] VITALS: BP 130/73; PULSE 80; RESP 16; TEMP 36.8; O2SAT 95
--- NOTE | 2023-11-06 07:36 | PM.PN ---
Subjective Subjective: Patient is postoperative day 1 status post laparoscopic appendectomy and lysis of additions for acute appendicitis and adhesive band of the terminal ileum. Patient is doing well, only complains of mild soreness in the abdomen. Has not have a bowel movement yet, has voided, diet to be initiated this morning. Vitals/I&O/Wt Last Vital Signs Temp 98.2 F 11/06/23 07:19 Pulse 80 11/06/23 07:19 Resp 16 11/06/23 07:19 BP 130/73 11/06/23 07:19 Pulse Ox 95 11/06/23 07:19 O2 Del Method Room Air 11/06/23 07:19 O2 Flow Rate 6 11/05/23 20:17 11/05/23 11/06/23 11/06/23 22:59 06:59 14:59 Intake Total 1150 / 1150 Output Total 5 / 5 Balance 1145 / 1145 Weight last 48 hrs Weight 133 lb 9 oz Weight 150 lb Weight 135 lb Physical Exam GI: OTHER: Abdomen is soft, appropriately tender to palpation, there is minimal bruising around the bellybutton. Data 11/06/23 05:17 11/06/23 05:17 A&P Assessment and plan (1) Chronic abdominal pain: (2) Acute appendicitis: Qualifiers: Acute appendicitis type: with generalized peritonitis Appendicitis abscess presence: without abscess Appendicitis gangrene presence: without gangrene Appendicitis perforation presence: without perforation Qualified Code(s): K35.200 - Acute appendicitis with generalized peritonitis, without perforation or abscess Plan Good progression on postoperative day 1 after laparoscopic appendectomy and lysis of additions for acute appendicitis. Patient is doing okay, diet will be started this morning we will monitor tolerance, white count increased to 14,000, which is in line to surgical trauma, otherwise patient is feeling well, vital signs are stable, we will encourage ambulation today, we will monitor progression the patient is doing well she will be discharged this afternoon. Patient agrees with the plan. -Regular diet -Pain control -Possible discharge this afternoon Attestations Medical Necessity Statement*: For discharge this afternoon Coding Level of Care Code Acute Code for [facility] Diagnoses Chronic abdominal pain R10.9; G89.29 Acute appendicitis K35.200 Acute appendicitis type: with generalized peritonitis Appendicitis abscess presence: without abscess Appendicitis gangrene presence: without gangrene Appendicitis perforation presence: without perforation
[2023-11-06] MEDS: bisacodyl 5 mg Tablet 10 MG PO (09:00)
[2023-11-06] MEDS: amlodipine 5 mg Tablet 2.5 MG PO (09:00)
[2023-11-06] MEDS: polyethylene glycol 3350 Pkt 17 gm PO (09:00)
--- NOTE | 2023-11-06 09:23 | PC.CHAP ---
Pastoral Care Encounter/Spiritual Assessment Type of Contact [] Declined fiber optics technician visit [] Patient/Family/Request visit [] Outpatient visit [] Follow-up visit [] Physician referral [] Code/Alert [x] Routine visit [] Staff referral [] Actively dying [] Patient sleeping [x] Family support [] [] Out of room [] Palliative care [] [] Receiving care in room [] Pre-surgical visit [] Trauma [] Long length of stay [] ICU visit [] Other: Relational/Emotional Strength [x] Patient feels connected with others/family/visitors/staff [] Distress [] Loneliness/isolation [] Abandonment Spirituality of Patient [x] Person of Susi [] Attends Anglican of their Susi [x] Believes in Prayer [] Reads Bible or Adventist materials [] There are Spiritual issues to be addressed 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 Interventions [x] Prayer [] Active listening [] Non-anxious presence [] Spiritual/emotional support [] Crisis/trauma care [] Spiritual counseling [] Bereavement support [] Provided bereavement packet [] Provided Bible/devotional materials [] Provided toy/stuffed animal, coloring book to patient or family member [] Provided Communion [] Anointing/[place] [] Salvation [] Completed spiritual assessment [] Other: Impact on Illness or Injury [] Angry [] Fearful [] Anxious [] Often cries [] Exhaustion [] Unable to work [] Unable to attend lutheran [] Unable to walk/stand [] Unable to read [] Unable to drive [] Unable to eat/drink [] Unable to sleep [] Unable to be with family [] Patient intubated [] Other: Summary Time spent with patient 5 min
[2023-11-06 09:39] VITALS: RESP 18
[2023-11-06] MEDS: HYDROmorphone 1 mg/mL INJ 1 mL 0.400000000000000022 MG IVP (09:39)
[2023-11-06 11:31] VITALS: BP 139/73; PULSE 84; RESP 17; TEMP 36.9; O2SAT 93
--- NOTE | 2023-11-06 13:09 | PM.DCS ---
Discharge Providers Date of Admission: 11/05/23 20:07 Date of Discharge: November 06, 2023 Attending Provider at Admission: Marino Bryant MD Attending Provider at Discharge: Marino Bryant MD Primary Care Provider: Nolan Collaod DO Diagnoses at Discharge Discharge Diagnosis (1) Chronic abdominal pain: Status: Acute (2) Acute appendicitis: Status: Acute Qualifiers: Acute appendicitis type: with generalized peritonitis Appendicitis abscess presence: without abscess Appendicitis gangrene presence: without gangrene Appendicitis perforation presence: without perforation Qualified Code(s): K35.200 - Acute appendicitis with generalized peritonitis, without perforation or abscess Reason for Visit Reason for Visit: LB pain, ABD pain Brief History: 84-year-old female with chronic abdominal pain presenting with acute appendicitis she is status post laparoscopic appendectomy and lysis of addition of the level of the terminal ileum. Patient doing well in hospital day 1, tolerating diet had a bowel movement has been ambulating no significant pain. Patient will be discharged home and follow-up as outpatient. Physical Exam GI: OTHER: Abdomen soft, nontender, nondistended. Discharge Data Studies Completed and Pending Completed Studies During Hospitalization Category Date Time Status CT abdomen pelvis w con* [id number] Stat Cat Scan 11/05/23 16:12 Completed Pending at discharge Category Date Time Status Pathology: Surgical [PTH] Routine Pth 11/05/23 20:12 Received Radiology Impressions Abdomen/Pelvis CT 11/05/23 16:12 IMPRESSION: Developing acute, uncomplicated appendicitis. Laboratory Results WBC 14.14 10^3/uL (3.29-11.43) H 11/06/23 05:17 RBC 3.84 10^6/uL (3.85-5.65) L 11/06/23 05:17 Hgb 12.50 g/dL (11.27-16.99) 11/06/23 05:17 Hct 36.5 % (36-47) 11/06/23 05:17 MCV 95.1 fl (85-98) 11/06/23 05:17 MCH 32.6 pg (27-33) 11/06/23 05:17 MCHC 34.2 g/dL (30-55) 11/06/23 05:17 RDW 13.2 % (12.1-15.1) 11/06/23 05:17 Plt Count 184 10^3/cmm (157-399) 11/06/23 05:17 MPV 11.2 fL (7.4-10.4) H 11/06/23 05:17 Neut % (Auto) 91.7 % 11/06/23 05:17 Lymph % (Auto) 4.1 % 11/06/23 05:17 [place] % (Auto) 3.7 % 11/06/23 05:17 Eos % (Auto) 0.0 % 11/06/23 05:17 Baso % (Auto) 0.1 % 11/06/23 05:17 Neut # (Auto) 12.95 10^3/uL (1.8-7.7) H 11/06/23 05:17 Lymph # (Auto) 0.6 10^3/uL (0.8-4.8) L 11/06/23 05:17 [place] # (Auto) 0.5 10^3/uL (0.2-0.9) 11/06/23 05:17 Eos # (Auto) 0.0 10^3/uL (0.0-0.8) 11/06/23 05:17 Baso # (Auto) 0.0 10^3/uL (0.0-0.1) 11/06/23 05:17 Nucleated RBC % (auto) 0 % 11/06/23 05:17 Nucleated RBCs # 0.0 /100WBC 11/06/23 05:17 Sodium 141 mmol/L (136-145) 11/06/23 05:17 Potassium 3.6 mmol/L (3.5-5.1) 11/06/23 05:17 Chloride 105 mmol/L (98-107) 11/06/23 05:17 Carbon Dioxide 26 mmol/L (22-29) 11/06/23 05:17 Anion Gap 13.6 (5-19) 11/06/23 05:17 BUN 15 mg/dL (8-23) 11/06/23 05:17 Creatinine 1.1 mg/dL (0.5-0.9) H 11/06/23 05:17 GFR Calculation Not Reportable 11/06/23 05:17 Glucose 191 mg/dL (65-115) H 11/06/23 05:17 Calculated Osmolality 298 mOsm/kg (285-295) H 11/06/23 05:17 Calcium 8.3 mg/dL (8.5-10.5) L 11/06/23 05:17 Total Bilirubin 0.4 mg/dL (0.15-1.2) 11/05/23 15:32 AST 16 U/L (0-32) 11/05/23 15:32 ALT 8 U/L (0-33) 11/05/23 15:32 Alkaline Phosphatase 92 U/L (35-105) 11/05/23 15:32 Total Protein 7.8 g/dL (6.6-8.7) 11/05/23 15:32 Albumin 4.0 g/dL (3.5-5.2) 11/05/23 15:32 Globulin 3.8 g/dL (1.3-4.6) 11/05/23 15:32 Lipase 39 U/L (13-60) 11/05/23 15:32 Urine Color Yellow (Yellow) 11/05/23 17:06 Urine Appearance Clear (CLEAR) 11/05/23 17:06 Urine pH 7 (5-7) 11/05/23 17:06 Ur Specific [place] 1.010 (1.005-1.030) 11/05/23 17:06 Urine Protein Trace (Negative) 11/05/23 17:06 Urine Glucose (UA) Norm (Normal) 11/05/23 17:06 Urine Ketones Negative (Negative) 11/05/23 17:06 Urine Blood 2+ (Negative) H 11/05/23 17:06 Urine Nitrate Negative (Negative) 11/05/23 17:06 Urine Bilirubin Neg (Negative) 11/05/23 17:06 Urine Urobilinogen Norm mg/dL (Negative) 11/05/23 17:06 Ur Leukocyte Esterase Negative (Negative) 11/05/23 17:06 Urine RBC 0-4 /hpf (0-2) H 11/05/23 17:06 Urine WBC None /hpf (0-5) 11/05/23 17:06 Ur Squamous Epith Cells None /hpf (0-5) 11/05/23 17:06 Amorphous Sediment Not Reportable 11/05/23 17:06 Urine Bacteria Trace /hpf (NONE) 11/05/23 17:06 Vitals Last Vital Signs Temp 98.5 F 11/06/23 11:31 Pulse 84 11/06/23 11:31 Resp 17 11/06/23 11:31 BP 139/73 11/06/23 11:31 Pulse Ox 93 11/06/23 11:31 O2 Del Method Room Air 11/06/23 11:31 O2 Flow Rate 6 11/05/23 20:17 Discharge Plan Discharge Patient Disposition: Home Condition: Stable Prescriptions: New Tylenol 325 mg tablet 325 mg PO Q6H Qty: 30 0RF amoxicillin-pot clavulanate 875-125 mg tablet 1 tab PO BID Qty: 10 0RF oxycodone 5 mg tablet 5 mg PO Q8H PRN (Reason: pain) Qty: 20 0RF Miralax 17 gram powder in packet 17 g PO DAILY 4 Days Qty: 5 0RF Continued amlodipine 2.5 mg tablet 2.5 mg PO DAILY alprazolam 0.25 mg tablet 0.25 mg PO BID@0800,2100 Discontinued acetaminophen [Tylenol] 325 mg Tablet 325 - 650 mg PO Q4H PRN (Reason: Pain) tramadol 50 mg tablet 50 mg PO BID PRN (Reason: Pain) Discharge Orders: Discharge Order (Routine); Ordered 11/06/23 Ordered By: Marino Bryant Referrals: Nolan Collado DO [Primary Care Provider] - Marino Bryant MD [Physician] - (2 weeks) Discharge Diet: Advance as tolerated Discharge Activity: Limit activity as instructed Patient Instructions: Opioid Safety Activity Restrictions/Additional Instructions: Do not lift anything heavier than 10 pounds for the next 4 to 6 weeks. Walk is much as possible to improve your recovery rate. Return to the hospital you have fever chills severe abdominal pain nausea vomit or purulence from your wounds. Discharge Attestations Time Spent in Discharge Care*: less than 30 min Quality Metrics Clinical Quality Measures [ No reported AMI, CVA or VTE this stay] Coding Level of Care Code Acute Code for [facility] Fwd Diagnoses Chronic abdominal pain R10.9; G89.29 Acute appendicitis K35.200 Acute appendicitis type: with generalized peritonitis Appendicitis abscess presence: without abscess Appendicitis gangrene presence: without gangrene Appendicitis perforation presence: without perforation
[2023-11-06 14:24] VITALS: BP 139/73; PULSE 84; RESP 17; TEMP 36.9; O2SAT 93
== END 2023-11-06 14:24 | disposition home or self-care (01) ==
LOC: ER 18:26 → MEDSURG 20:54 → ER 11-06 07:25 → OPS 11-06 07:25
PROVIDERS: Admitting Provider Surgery; Emergency Provider Emergency Medicine; PCP Internal Medicine; Visit Provider Surgery
PROC: 0DTJ4ZZ Resection of Appendix, Percutaneous Endoscopic Approach (ICD-10-PCS; CPT 44970; principal; 2023-11-05 19:00)
DX: K35.200 Acute appendicitis with generalized peritonitis, without perforation or abscess (principal); K66.0 Peritoneal adhesions (postprocedural) (postinfection); J44.9 Chronic obstructive pulmonary disease, unspecified; I10 Essential (primary) hypertension; F17.200 Nicotine dependence, unspecified, uncomplicated
CPT/HCPCS: 44970; 36415; 74177; 80048; 80053; 81001; 83690; 85025; 88300; 88304; 93005; 96365; 96367; 96375; 96376; 99285; G0378; J1100; J1170; J2270; J2405; J2543; J2704; J3010; J3490; J7030; Q9967

== ENCOUNTER → 2023-11-21 13:10 | Outpatient (BNVA) | payer MEDICARE, SELFPAY | PROVIDERS: PCP Internal Medicine; Visit Provider Surgery | DX: Z98.890 Other specified postprocedural states (principal) | CPT/HCPCS: 99024 ==

== ENCOUNTER → 2023-12-06 10:08 | Outpatient (BNVA) | payer MEDICARE, SELFPAY | PROVIDERS: PCP Internal Medicine; Visit Provider Orthopaedic Surgery | DX: M54.9 Dorsalgia, unspecified (principal); M48.062 Spinal stenosis, lumbar region with neurogenic claudication | CPT/HCPCS: 36415; 72110; 80053; 85025; 99204 ==

== ENCOUNTER 2024-01-04 06:47 | Day surgery (SDC) | payer MEDICARE, SELFPAY ==
[2024-01-04] VITALS (10 sets, daily range): BP systolic 104–136; BP diastolic 67–83; PULSE 76–92; RESP 16–18; TEMP 36.2–36.3; O2SAT 92–98; BMI 21.9
--- NOTE | 2024-01-04 | XR_ITS ---
WS: [id number] C-ARM RADIOGRAPHS LUMBAR SPINE; 3 IMAGES HISTORY: BOY PICS COMPARISON: 12/06/2023 New site of decompression lumbar spine with marker indicating the L4-5 level. Prior posterior fixatio n with laminectomy at L2-3. XR/XR lumbar spine 2-3V* [id number] IMPRESSION: Intraoperative imaging during decompression at L4-5.
--- NOTE | 2024-01-04 06:58 | W.PM.OPSUD ---
Surgery/Procedure H&P Update DATE OF PROCEDURE: January 04, 2024 DATE H&P PERFORMED: 12/26/23 H&P UPDATE INFORMATION: I have reviewed H&P completed within last 30 days, I have examined patient prior to procedure and No changes to prior documentation PREOP DIAGNOSIS: Lumbar stenosis with neurogenic claudication PLANNED PROCEDURE: Operation Date: 01/04/24 08:00 Proposed Procedures p Lumbar Spine Decompression Lumbar Decompression(Not Applicable) - Troy Gomez DO
[2024-01-04] MEDS: sodium chloride 0.9% 1,000 ML 30 ML IV (07:09)
--- NOTE | 2024-01-04 07:50 | P.ANESASSM_ITS ---
Pre-Anesthetic Assessment Height/Weight: Height 1.63 m Weight 58.06 kg Temp Pulse Resp BP Pulse Ox O2 Del Method 97.1 F L 92 16 108/83 97 Room Air 01/04/24 06:56 01/04/24 06:56 01/04/24 06:56 01/04/24 06:56 01/04/24 06:56 01/04/24 06:56 Preop Diagnosis: Lumbar stenosis with neurogenic claudication Operation Date: 01/04/24 08:00 Proposed Procedures p Lumbar Spine Decompression Lumbar Decompression(Not Applicable) - Troy Gomez, DO Familial anesthetic complications: None Was Beta Elroy taken within 24 hours: N/A Was Clonidine taken within 24 hours: N/A Last intake: Intake Last Liquid Date 01/03/24 Last Liquid Time 21:00 Last Solid Date 01/03/24 Last Solid Time 19:00 Social Tobacco and No alcohol Exam alert, oriented x 3, clear to auscultation bilaterally and regular rate & rhythm Airway Mallampati: Class II Dentition: false Pulmonary Chronic Obstructive Pulmonary Disease CV/HEM Hypertension Hx a flutter Chronic Renal Insufficiency Anesthetic Plan ASA status: 2 Anesthesia: General Risk of > 500 ml blood loss (7ml/kg in children): No Medications/Allergies Home Medications Medication Instructions Recorded Confirmed Last Taken Type alprazolam 0.25 mg tablet 0.25 mg PO BID@0800,2100 07/02/20 01/04/24 01/03/24 History amlodipine 2.5 mg tablet 2.5 mg PO DAILY 08/01/21 01/04/24 01/04/24 History acetaminophen 325 mg tablet 325 mg PO Q6H #30 tabs 11/06/23 01/04/24 Unknown Rx (Tylenol) tramadol 50 mg tablet 100 mg PO BID PRN Pain (Scale 12/26/23 01/04/24 01/04/24 History Score 7-10) Allergies Allergy/AdvReac Type Severity Reaction Status Date / Time diazepam [From Valium] Allergy Unknown Verified 01/04/24 06:54 hydralazine Allergy ADR-Nausea Verified 01/04/24 06:54 promethazine [From Phenergan] Allergy ADR-Confusi Verified 01/04/24 06:54 [facility] Anesthesia Medical History Chronic abdominal pain Left renal atrophy Ureteropelvic junction (UPJ) obstruction, left Surgical History S/P ablation of atrial flutter H/O: hysterectomy History of back surgery Family History Mother , 50 Cancer Colon Father , 80 Bleeding disorder Aneurysm Social History Smoking and tobacco/nicotine status: former use of tobacco/nicotine Alcohol intake: never Substance/Drug Use: never Marital status: / Current occupational status: retired Data Anesthesia Cardiac Studies: No Data to Display
[2024-01-04] MEDS: ceFAZolin 2,000 MG in sodium chloride 0.9% (plus) 50 ML 100 MG IV (08:04)
[2024-01-04] MEDS: lidocaine-epi 1% 20 mL INJ INJECTION (08:39)
--- NOTE | 2024-01-04 09:16 | PM.OP ---
Operative Report Date of procedure: January 04, 2024 Pre-op diagnosis: Lumbar stenosis with neurogenic claudication Post-op diagnosis: same Procedure done: 1. L4-5 laminectomy and partial facetectomy 2. L5-S1 laminectomy with partial facetectomy Surgeon: Troy Gomez DO Procedure: 1. L4-5 laminectomy and partial facetectomy 2. L5-S1 laminectomy with partial facetectomy Patient is brought to the operative suite. After undergoing anesthesia they are placed in the prone position. All areas of impingement are well padded. Patient is then prepped and draped in the normal sterile fashion. A skin incision is made over the L4/5 level. This is confirmed under c-arm guidance. A series of dilators are passed and the tubular retractor is docked on the L4 lamina. A bovie is used to clear the soft tissue off the lamina and the L 4/5 facet joint. A high speed wesley is then used to perform the laminectomy and take down the medial aspect of the L 4/5 facet joint. A kerrison rongeure was then used to take down the remaining lamina and smooth the edge of the laminectomy up to the point where the ligamentum flavum attaches. Attention was then brought to the medial aspect of the facet joint. The remaining medial aspect of the superior and inferior aspect of the facet joint were taken down with the kerrison from the pedicle of L4 to L 5. The facet joint had significant hypertrophy. Attention was then brought to the Ligamentum Flavum. The ligament was taken down from the lamina of L4 to L5 and out medially to the remaining facet joint. The ligament was thick. The dura was then exposed. The dura was in good repair. The L4 nerve was then traced with a curette out the L4/5 foramen and found to be adequately decompressed. The L5 nerve was traced with a curette around the L5 pedicle. The lateral recess was opened with a kerrison helping to further decompress the L5 nerve. Wound is then irrigated copiously with saline and surgiflo is used to stop any bleeding. The tubular retractor is removed and the A skin incision is made over the L5/S1 level. This is confirmed under c-arm guidance. A series of dilators are passed and the tubular retractor is docked on the L5 lamina. A bovie is used to clear the soft tissue off the lamina and the L 5/S1 facet joint. A high speed wesley is then used to perform the laminectomy and take down the medial aspect of the L 5/S1 facet joint. A kerrison rongeure was then used to take down the remaining lamina and smooth the edge of the laminectomy up to the point where the ligamentum flavum attaches. Attention was then brought to the medial aspect of the facet joint. The remaining medial aspect of the superior and inferior aspect of the facet joint were taken down with the kerrison from the pedicle of L5 to S1. The facet joint had significant hypertrophy. Attention was then brought to the Ligamentum Flavum. The ligament was taken down from the lamina of L4 to S1 and out medially to the remaining facet joint. The ligament was thick. The dura was then exposed. The dura was in good repair. The L5 nerve was then traced with a curette out the L5/S1 foramen and found to be adequately decompressed. The S1 nerve was traced with a curette around the S1 pedicle. The lateral recess was opened with a kerrison helping to further decompress the S1 nerve. Wound is then irrigated copiously with saline and surgiflo is used to stop any bleeding. The tubular retractor is removed and the wound is closed with vicryl and monocryl suture. Glue is then used to protect the wound. A sterile dressing is then placed. Patient was then placed in the supine position and transferred to the PACU in stable condition.
[2024-01-04] MEDS: HYDROcodone-acetaminophen 5-325 mg Tablet 1 TAB PO (10:07)
--- NOTE | 2024-01-04 10:30 | ANE.PACU2 ---
Inpatient post-anesthesia follow up: Airway intact: Yes Vital signs: Temperature 97.2 F Pulse Rate 78 Respiratory Rate 18 Blood Pressure 120/70 Pulse Oximetry 95 Oxygen Delivery Me thod Room Air Oxygen Flow Rate Fraction of Inspir ed Oxygen Hydration adequate: Yes Nausea and vomiting: No Pain level: 1 Mental status: Baseline
== END 2024-01-04 10:32 | disposition home or self-care (01) ==
PROVIDERS: PCP Internal Medicine; Visit Provider Orthopaedic Surgery
PROC: (CPT 63005; principal; 2024-01-04 08:00)
DX: M48.062 Spinal stenosis, lumbar region with neurogenic claudication (principal); J44.9 Chronic obstructive pulmonary disease, unspecified; I10 Essential (primary) hypertension; Z87.891 Personal history of nicotine dependence
CPT/HCPCS: 63047; 63048; 72100; 76000; J0690; J1100; J2250; J2405; J2704; J2710; J3010; J3490; J7030

== ENCOUNTER → 2024-01-24 14:47 | Outpatient (BNVA) | payer MEDICARE, SELFPAY | PROVIDERS: PCP Internal Medicine; Visit Provider Orthopaedic Surgery | DX: Z98.890 Other specified postprocedural states (principal) | CPT/HCPCS: 99024 ==

== ENCOUNTER → 2024-02-19 15:34 | Outpatient (BNVA) | payer MEDICARE, SELFPAY | PROVIDERS: PCP Internal Medicine; Visit Provider Orthopaedic Surgery | DX: Z98.890 Other specified postprocedural states (principal) | CPT/HCPCS: 99024 ==

== ENCOUNTER → 2024-04-01 14:19 | Outpatient (BNVA) | payer MEDICARE, SELFPAY | PROVIDERS: PCP Internal Medicine; Visit Provider Orthopaedic Surgery | DX: Z98.890 Other specified postprocedural states (principal) | CPT/HCPCS: 99024 ==

== ENCOUNTER 2024-04-06 21:20 | Emergency (ER) | payer MEDICARE, SELFPAY ==
[2024-04-06 21:25] VITALS: BP 188/98; PULSE 82; RESP 18; TEMP 36.6; O2SAT 97; BMI 22.3
--- NOTE | 2024-04-06 21:30 | ECG_ITS ---
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 Measurements Intervals [place] Rate: 86 P: 65 [place]: 185 QRS: -35 QRSD: 89 T: 60 QT: 380 QTc: 456 Interpretive Statements SINUS RHYTHM WITH OCCASIONAL SUPRAVENTRICULAR PREMATURE COMPLEXES LEFT AXIS DEVIATION [QRS AXIS < -30] SEPTAL MYOCARDIAL INFARCTION , PROBABLY OLD [40+ ms Q WAVE IN V1/V2] Compared to ECG 11/05/2023 18:31:46 Left-axis deviation now present Myocardial infarct finding now present Sinus arrhythmia no longer present Indeterminate axis no longer present Electronically Signed On 04-07-2024 00:07:44 CDT by Fany Garrison M.D. [email or web address]
--- NOTE | 2024-04-06 21:34 | XRR_ITS ---
PROCEDURE INFORMATION: Exam: XR Chest Exam date and time: 04/06/2024 10:09 PM Age: 83 years old Clinical indication: Chest pressure; Prior surgery; Surgery date: 6+ months; Surgery type: Cardiac node ablation. Lumbar fusion; Patient HX: C/O chest pain TECHNIQUE: Imaging protocol: Radiologic exam of the chest. Views: 1 view. COMPARISON: CR XR chest 2V* [id number] 02/28/2023 9:00 AM FINDINGS: Lungs: Unremarkable. No consolidation. Pleural spaces: Unremarkable. No pleural effusion. No pneumothorax. Heart/Mediastinum: No cardiomegaly. Vasculature: Prominence of the aortic contour is due to chronic ectasia and tortuosity, probably unchanged from prior imaging when accounting for differences in patient positioning/rotated positioning on the current study, similar appearance of the superior mediastinum compared to 09/11/2018. The aorta measures up to 3.5 cm from the lateral contour to the medial calcified contour. No convincing plain film evidence of superior mediastinal widening. Bones/joints: Mild calcific rotator cuff tendinopathy in the right shoulder. No acute osseous abnormality. Midline partially imaged lumbar fusion hardware. Diffuse osteopenia. XR/XR chest 1V portable [id number] IMPRESSION: No clear-cut acute abnormality in the chest when accounting for technical differences detailed above. Further evaluation with CT as clinically warranted if there is persistent significant symptomatology or suspicion for significant acute intrathoracic abnormality.
[2024-04-06 22:00] VITALS: BP 194/103; PULSE 73; RESP 17; O2SAT 98
[2024-04-06 22:41] LABS: Basophils % 0.5 %; Eosinophils # 0.2 10^3/uL (0.0-0.8); Eosinophils % 2.8 %; Hematocrit 40.9 % (36-47); Lymphocytes # 2.4 10^3/uL (0.8-4.8); Lymphocytes % 40.1 %; Mean Corpuscular HGB Conc 32.3 g/dL (30-55); Mean Corpuscular Hemoglobin 30.1 pg (27-33); Mean Corpuscular Volume 93.4 fl (85-98); Mean Platelet Volume 11.1 fL (7.4-10.4); Monocytes # 0.6 10^3/uL (0.2-0.9); Monocytes % 10.2 %; Neutrophils # 2.76 10^3/uL (1.8-7.7); Neutrophils % 46.2 %; Nucleated Red Blood Cells % 0 %; Platelet Count 150 10^3/cmm (157-399); Red Blood Count 4.38 10^6/uL (3.85-5.65); Red Cell Distribution Width 15.4 % (12.1-15.1); White Blood Count 5.98 10^3/uL (3.29-11.43)
[2024-04-06 22:45] VITALS: BP 153/103; PULSE 81; RESP 20; O2SAT 97
[2024-04-06] MEDS: aspirin 81 mg Chew Tablet 324 MG PO (22:47)
[2024-04-06] MEDS: nitroglycerin 0.4 mg sublingual Tablet SUBLINGUAL (22:48)
[2024-04-06 22:50] LABS: Troponin(5th) Baseline 32 ng/L (0-10)
--- NOTE | 2024-04-06 22:56 | W.ED.CHESTPA ---
HPI - Chest Pain General: Chief Complaint: Chest Pain Stated Complaint: CP Time Seen by Provider: 04/06/24 21:54 History of Present Illness: 83-year-old female with no prior history of coronary disease. She does have a history of atrial fibrillation with ablation years ago. She presents with chest pressure, shortness of breath, numbness to the lips. Numbness to the lips is improved, but pressure and shortness of breath is still there. She says it is like a weight on her chest. It is improved from prior but still present. She has not felt well most of the day she says, but yesterday she did feel well. She denies overt pain. Taking a deep breath seems to worsen the pressure. She has been taking her medications normally. She does take hypertension medication. Related Data Home Medications Medication Instructions Recorded Confirmed alprazolam 0.25 mg tablet 0.25 mg PO BID@0800,2100 07/02/20 04/01/24 amlodipine 2.5 mg tablet 2.5 mg PO DAILY 08/01/21 04/01/24 tramadol 50 mg tablet 100 mg PO BID PRN Pain (Scale 12/26/23 04/01/24 Score 7-10) Previous Rx's Medication Instructions Recorded acetaminophen 325 mg tablet 325 mg PO Q6H #30 tabs 11/06/23 (Tylenol) hydrocodone 5 mg-acetaminophen 325 1 - 2 tab PO .Q4-6H PRN pain 7 02/18/24 mg tablet days #40 tabs prednisone 20 mg tablet 20 mg PO DAILY #15 tabs 02/19/24 Allergies Allergy/AdvReac Type Severity Reaction Status Date / Time diazepam [From Valium] Allergy Unknown Verified 02/19/24 15:58 hydralazine Allergy ADR-Nausea Verified 02/19/24 15:58 promethazine [From Phenergan] Allergy ADR-Confusi Verified 02/19/24 15:58 on [facility] ED PFSH: Medical History Chronic abdominal pain Left renal atrophy Ureteropelvic junction (UPJ) obstruction, left Surgical History S/P ablation of atrial flutter H/O: hysterectomy History of back surgery Family History Mother , 50 Cancer Colon Father , 80 Bleeding disorder Aneurysm Social History Smoking and tobacco/nicotine status: never used tobacco/nicotine Alcohol intake: never Substance/Drug Use: never Marital status: / Current occupational status: retired Physical Exam Const: COMMON NORMALS: no acute distress GENERAL APPEARANCE: cooperative; not ill appearing and not frail appearing HENMT: COMMON NORMALS: normocephalic, atraumatic and Normal external nose present HEAD & SCALP: normocephalic and atraumatic FACE & SINUS: normal facial exam and face symmetric NOSE: Normal external nose present Eye: COMMON NORMALS: Equal, round and reactive pupils present and EOMs intact bilaterally PUPIL: Yes Equal, round and reactive pupils present Neck/C-Spine: GENERAL: Yes trachea midline Chest: CHEST: Yes Symmetrical chest wall rise Resp: COMMON NORMALS: normal respiratory effort, No retractions, No use of accessory muscles and clear to auscultation bilaterally AUSCULTATION: clear to auscultation bilaterally Cardio: COMMON NORMALS: regular rate and regular rhythm RATE: regular rate RHYTHM: regular rhythm GI: COMMON NORMALS: Normal to inspection, nondistended, normoactive bowel sounds present Extremity: COMMON NORMALS: no pedal edema Neuro: CROW COMA SCALE: document GCS findings Crow coma scale eye opening: Spontaneous Crow coma scale verbal response: Orientated [place] coma scale motor response: Obey commands [place] coma scale total score: 15 SENSORY EXAM: Yes extremities (intact) Psych: COMMON NORMALS: speech normal SPEECH: Yes normal speech Skin: COMMON NORMALS: no rashes or lesions noted GENERAL SKIN EXAM: no rashes or lesions noted Course Vital Signs: Vital signs: Vital Signs Temperature 97.9 F 04/06/24 21:25 Pulse Rate 67 04/07/24 00:50 Respiratory Rate 19 H 04/06/24 23:30 Blood Pressure 157/100 04/07/24 00:50 Pulse Oximetry 97 04/07/24 00:50 Oxygen Delivery Me thod Room Air 04/06/24 22:45 MDM - Chest Pain Medical Decision Making Patient was quite hypertensive on arrival, and somewhat anxious. She was given sublingual nitroglycerin, with resolution of her hypertension, and resolution of her chest discomfort. She is no longer short of breath. She has made a couple of laps in the ER, gone to the bathroom without recurrence of chest discomfort. Her vitals have otherwise been good. Chest x-ray is clean. Platelet count is 150, creatinine is 1.1, troponin initially was 32, down to 28 on 2-hour testing. No acute ST wave changes on EKG. With resolution of her pain, improvement in her hypertension, and no rising troponin with no EKG changes indicative of ischemia, she will be allowed discharge home. She will return for any return of symptoms. Close outpatient follow-up. Lab Data 04/06/24 22:15 04/06/24 22:15 Radiology Impressions Chest X-Ray 04/06/24 21:34 IMPRESSION: No clear-cut acute abnormality in the chest when accounting for technical differences detailed above. Further evaluation with CT as clinically warranted if there is persistent significant symptomatology or suspicion for significant acute intrathoracic abnormality. Laboratory Results WBC 5.98 10^3/uL (3.29-11.43) 04/06/24 22:15 RBC 4.38 10^6/uL (3.85-5.65) 04/06/24 22:15 Hgb 13.20 g/dL (11.27-16.99) 04/06/24 22:15 Hct 40.9 % (36-47) 04/06/24 22:15 MCV 93.4 fl (85-98) 04/06/24 22:15 MCH 30.1 pg (27-33) 04/06/24 22:15 MCHC 32.3 g/dL (30-55) 04/06/24 22:15 RDW 15.4 % (12.1-15.1) H 04/06/24 22:15 Plt Count 150 10^3/cmm (157-399) L 04/06/24 22:15 MPV 11.1 fL (7.4-10.4) H 04/06/24 22:15 Neut % (Auto) 46.2 % 04/06/24 22:15 Lymph % (Auto) 40.1 % 04/06/24 22:15 [place] % (Auto) 10.2 % 04/06/24 22:15 Eos % (Auto) 2.8 % 04/06/24 22:15 Baso % (Auto) 0.5 % 04/06/24 22:15 Neut # (Auto) 2.76 10^3/uL (1.8-7.7) 04/06/24 22:15 Lymph # (Auto) 2.4 10^3/uL (0.8-4.8) 04/06/24 22:15 [place] # (Auto) 0.6 10^3/uL (0.2-0.9) 04/06/24 22:15 Eos # (Auto) 0.2 10^3/uL (0.0-0.8) 04/06/24 22:15 Baso # (Auto) 0.0 10^3/uL (0.0-0.1) 04/06/24 22:15 Nucleated RBC % (auto) 0 % 04/06/24 22:15 Nucleated RBCs # 0.0 /100WBC 04/06/24 22:15 Sodium 139 mmol/L (136-145) 04/06/24 22:15 Potassium 3.7 mmol/L (3.5-5.1) 04/06/24 22:15 Chloride 99 mmol/L (98-107) 04/06/24 22:15 Carbon Dioxide 31 mmol/L (22-29) H 04/06/24 22:15 Anion Gap 12.7 (5-19) 04/06/24 22:15 BUN 18 mg/dL (8-23) 04/06/24 22:15 Creatinine 1.1 mg/dL (0.5-0.9) H 04/06/24 22:15 GFR Calculation Not Reportable 04/06/24 22:15 Glucose 103 mg/dL (65-115) 04/06/24 22:15 Calculated Osmolality 290 mOsm/kg (285-295) 04/06/24 22:15 Calcium 9.9 mg/dL (8.5-10.5) 04/06/24 22:15 Total Bilirubin 0.2 mg/dL (0.15-1.2) 04/06/24 22:15 AST 23 U/L (0-32) 04/06/24 22:15 ALT 14 U/L (0-33) 04/06/24 22:15 Alkaline Phosphatase 102 U/L (35-105) 04/06/24 22:15 Troponin T Baseline 32 ng/L (0-10) H 04/06/24 22:15 Troponin T 120 Minute 27.81 ng/L (0-10) H 04/06/24 23:41 Delta Troponin T -4.19 ABS# (0-10) L 04/06/24 23:41 NT-Pro-B Natriuret Pep 214 pg/mL (0-450) 04/06/24 22:15 Total Protein 7.0 g/dL (6.6-8.7) 04/06/24 22:15 Albumin 4.4 g/dL (3.5-5.2) 04/06/24 22:15 Globulin 2.6 g/dL (1.3-4.6) 04/06/24 22:15 Lipase 48 U/L (13-60) 04/06/24 22:15 All radiology interpretation(s) finalized by discharge Discharge Plan Discharge Patient Disposition: Home Clinical Impression: Chest pain, Hypertension Condition: Stable Prescriptions: No Action amlodipine 2.5 mg tablet 2.5 mg PO DAILY prednisone 20 mg tablet 20 mg PO DAILY Qty: 15 0RF Rx Instructions: 60mg for three days, 40mg for two days, 20mg for two days. tramadol 50 mg tablet 100 mg PO BID PRN (Reason: Pain (Scale Score 7-10)) hydrocodone-acetaminophen 5-325 mg tablet 1 - 2 tab PO .Q4-6H PRN (Reason: pain) 7 Days Qty: 40 0RF alprazolam 0.25 mg tablet 0.25 mg PO BID@0800,2100 acetaminophen [Tylenol] 325 mg tablet 325 mg PO Q6H Qty: 30 0RF Discharge Orders: Discharge ED (Routine); Ordered 04/07/24 Ordered By: Thad Oh Referrals: Nolan Collado DO [Primary Care Provider] - Patient Instructions: Chest Pain (ED), Hypertension (ED), Opioid Safety, Pain Management Activity Restrictions/Additional Instructions: Return for any return of chest discomfort, shortness of breath, other symptoms. Call your doctor later today, and ask for a follow-up appointment. Let them know you were seen here. They may wish to perform more tests as an outpatient. Take your blood pressure twice daily, and report numbers to your doctor. Coding Level of Care Code ED Chief Operator Hydroformer for Laura Gregory
[2024-04-06 22:58] LABS: Alanine Aminotransferase 14 U/L (0-33); Albumin Level 4.4 g/dL (3.5-5.2); Alkaline Phosphatase 102 U/L (35-105); Anion Gap 12.7 (5-19); Aspartate Amino Transferase 23 U/L (0-32); Blood Urea Nitrogen 18 mg/dL (8-23); Calcium 9.9 mg/dL (8.5-10.5); Carbon Dioxide 31 mmol/L (22-29); Chloride 99 mmol/L (98-107); Globulin 2.6 g/dL (1.3-4.6); Glucose 103 mg/dL (65-115); Lipase 48 U/L (13-60); NT Pro B Type Natriuretic Pept 214 pg/mL (0-450); Osmolality Calculated 290 mOsm/kg (285-295); Potassium 3.7 mmol/L (3.5-5.1); Sodium 139 mmol/L (136-145); Total Bilirubin 0.2 mg/dL (0.15-1.2)
[2024-04-06 22:59] LABS: Creatinine Clr Calc Pharmacy 35.1118
[2024-04-06 23:15] VITALS: BP 137/84; PULSE 74; RESP 17; O2SAT 96
[2024-04-06 23:30] VITALS: BP 159/76; PULSE 63; RESP 19; O2SAT 97
[2024-04-07 00:09] LABS: Troponin 5 2HR 27.81 ng/L (0-10)
[2024-04-07 00:11] LABS: Troponin 5 2HR Delta -4.19 ABS# (0-10)
--- NOTE | 2024-04-07 00:49 | PC.NURSE ---
Pt was ambulated around department. Tolerated well. Reports feeling much better and is ready to go home. MD notified.
[2024-04-07 00:50] VITALS: BP 157/100; PULSE 67; O2SAT 97
== END 2024-04-07 00:51 | disposition home or self-care (01) ==
PROVIDERS: Nurse Practitioner Family; Emergency Provider Emergency Medicine; PCP Internal Medicine
DX: R07.9 Chest pain, unspecified (principal); I10 Essential (primary) hypertension
CPT/HCPCS: 36415; 71045; 80053; 83690; 83880; 84484; 85025; 93005; 99285

== ENCOUNTER 2024-04-17 12:16 | Outpatient (RCR) | payer MEDICARE, SELFPAY | END 2024-05-10 23:59 | disposition home or self-care (01) | LOC: SPT 12:16 | PROVIDERS: Visit Provider Orthopaedic Surgery | DX: M54.9 Dorsalgia, unspecified (principal); G89.29 Other chronic pain | CPT/HCPCS: 97110; 97161 ==

== ENCOUNTER → 2024-05-05 15:23 | Outpatient (BNVA) | payer MEDICARE, SELFPAY | PROVIDERS: PCP Internal Medicine; Visit Provider Podiatrist Foot & Ankle Surgery | DX: Q82.8 Other specified congenital malformations of skin | CPT/HCPCS: 99203 ==

== ENCOUNTER → 2024-07-03 10:41 | Outpatient (BNVA) | payer MEDICARE, SELFPAY | PROVIDERS: PCP Internal Medicine; Visit Provider Orthopaedic Surgery | DX: Z98.890 Other specified postprocedural states (principal); M48.062 Spinal stenosis, lumbar region with neurogenic claudication | CPT/HCPCS: 99213 ==

== ENCOUNTER 2024-07-17 11:46 | Outpatient (CLI) | payer MEDICARE, SELFPAY ==
--- NOTE | 2024-07-17 12:15 | MR_ITS ---
WS: [id number] MRI LUMBAR SPINE NONCONTRAST TECHNIQUE: Sagittal T1, T2 and STIR imaging. Axial T1 and T2 imaging. CLINICAL INFORMATION: pain COMPARISON: MRI 10/18/2023 FINDINGS: Lumbar scoliosis similar to previous. Prior postoperative changes pedicle screw fixation L2-3. L1-L2: Mild disc bulging with narrowing of the RIGHT subarticular recess. Moderate RIGHT foraminal narrowing. This is similar to previous. LEFT foramen is patent. L2-L3: Prior pedicle screw fixation. Spinal canal and foramen are patent. L3-L4: Mild disc bulging with impingement LEFT subarticular recess and traversing LEFT L4 nerve root. Mild LEFT greater than RIGHT foraminal narrowing. Mild to moderate facet arthropathy. L4-L5: Mild disc bulge with impingement subarticular recess bilaterally. Moderate facet arthropathy. Mild LEFT foraminal narrowing. Interval hemilaminectomy at this level. L5-S1: Mild disc bulging with endplate ridging. Moderate facet arthropathy. Mild RIGHT greater than LEFT foraminal narrowing. Visualized pelvic bony structures: Normal. Paravertebral soft tissues: Normal. Atrophic LEFT kidney with chronic hydronephrosis and renal cysts. Similar to the prior CT 11/05/2023 smaller RIGHT renal cysts. MR/MR lumbar spine wo con* [id number] IMPRESSION: 1. Interval hemilaminectomy L4-5 with persistent impingement on the subarticul ar recess bilaterally and traversing L5 nerve roots. 2. Mild LEFT L4-5 foraminal narrowing with contact of the exiting LEFT L4 nerv e root. 3. Moderate RIGHT L1-2 foraminal narrowing with impingement on the exiting RIG HT L1 nerve root similar to previous. Narrowing of the RIGHT subarticular reces s at this level. 4. Disc bulging L3-4 with slight impingement LEFT subarticular recess and shahid ersing LEFT L4 nerve root with mild LEFT L3-4 foraminal narrowing similar to pr evious.
== END 2024-07-17 11:47 | disposition home or self-care (01) ==
LOC: RAD 11:46
PROVIDERS: PCP Electrodiagnostic Medicine; Visit Provider Orthopaedic Surgery
DX: Z98.890 Other specified postprocedural states (principal); M48.062 Spinal stenosis, lumbar region with neurogenic claudication; M51.360 Other intervertebral disc degeneration, lumbar region with discogenic back pain only; M41.86 Other forms of scoliosis, lumbar region; Z98.1 Arthrodesis status; M47.896 Other spondylosis, lumbar region; N28.1 Cyst of kidney, acquired; N13.30 Unspecified hydronephrosis
CPT/HCPCS: 72148

== ENCOUNTER 2024-09-26 13:52 | Emergency (ER) | payer MEDICARE, SELFPAY ==
[2024-09-26 14:01] VITALS: BP 191/106; PULSE 87; RESP 18; TEMP 36.2; O2SAT 96; BMI 22.3
--- NOTE | 2024-09-26 14:10 | XR_ITS ---
WS: [id number] Portable AP upright chest, 09/26/2024 Clinical Data: chest pain Comparison: Portable chest, 04/06/2024 Findings: No nodules, masses or effusions are seen. The heart is normal. The pulmonary vascularity is not increased. No pneumonia or pneumothorax is seen. The aortic arch and descending thoracic aorta show tortuosity. XR/XR chest 1V portable [id number] Impression: Atherosclerosis.
--- NOTE | 2024-09-26 14:10 | ECG_ITS ---
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 Measurements Intervals [place] Rate: 78 P: 85 MS: 167 QRS: 20 QRSD: 97 T: 111 QT: 416 QTc: 476 Interpretive Statements SINUS RHYTHM WITH SINUS ARRHYTHMIA INDETERMINATE AXIS LOW QRS VOLTAGE IN PRECORDIAL LEADS MINIMAL ST DEPRESSION ABNORMAL QRS-T ANGLE [QRS-T AXIS DIFFERENCE > 60] Compared to ECG 04/06/2024 21:20:00 Indeterminate axis now present Low QRS voltage now present ST (T wave) deviation now present Electronically Signed On 09-27-2024 13:15:19 CDT by Mitch Bustamante M.D. [id number]
--- NOTE | 2024-09-26 14:19 | W.ED.NAVMDI ---
HPI - Nausea/Vomiting/Diarrhea General: Chief complaint: Nausea/Vomiting/Diarrhea Stated complaint: vomitting/weak Time Seen by Provider: 09/26/24 14:10 History of Present Illness: 84-year-old female who presents emergency room complaining of feeling weak vomiting and episodes of shortness of breath. She had an episode of associated tightness in her chest as well. Today it occurred while she was walking while she was going to different yard cells she previously had 1 episode earlier in the week while she was sleeping it woke her up resolved when she sat at the bedside she thought it took about an hour each time for the episodes to resolve she did not have any sharp pain she was nauseous with the second episode but never vomited. She has no known history of heart disease she does have a history of hypertension and she is a multi decade smoker. No recent fever sweats chills cough or shortness of breath. Associated symtoms: Reports chest pain; Denies dysuria Related Data Home Medications ?Medication ?Instructions ?Recorded ?Confirmed alprazolam 0.25 mg tablet 0.25 mg PO BID@0800,2100 07/02/20 09/26/24 amlodipine 2.5 mg tablet 2.5 mg PO DAILY 08/01/21 09/26/24 tramadol 50 mg tablet 100 mg PO BID PRN Pain (Scale 12/26/23 09/26/24 Score 7-10) Previous Rx's ?Medication ?Instructions ?Recorded acetaminophen 325 mg tablet 325 mg PO Q6H #30 tabs 11/06/23 (Tylenol) albuterol sulfate 90 mcg/actuation 2 puff inhalation Q6H PRN 08/07/24 aerosol inhaler shortness of breath or wheezing #8.5 grams aspirin 81 mg tablet,delayed 81 mg PO DAILY #30 tabs 09/26/24 release isosorbide mononitrate 30 mg 30 mg PO DAILY #30 tabs 09/26/24 tablet,extended release 24 hr Allergies Allergy/AdvReac Type Severity Reaction Status Date / Time diazepam (From Valium) Allergy Unknown Verified 08/07/24 10:35 hydralazine Allergy ADR-Nausea Verified 08/07/24 10:35 promethazine (From Phenergan) Allergy ADR-Confusi Verified 08/07/24 10:35 on Review of Systems Const: Denies: fever(s) or chills Card: Reports: chest pain Resp: Reports: dyspnea GI: Denies: abdominal pain : Denies: dysuria, urinary frequency or urinary urgency Musc: Denies: neck pain or back pain Skin/Breast: Denies: rash PFSH ED PFSH: Medical History Chronic abdominal pain Left renal atrophy Ureteropelvic junction (UPJ) obstruction, left Surgical History S/P ablation of atrial flutter H/O: hysterectomy History of back surgery Family History Mother , 50 Cancer Colon Father , 80 Bleeding disorder Aneurysm Social History Smoking and tobacco/nicotine status: current some day tobacco/nicotine user Alcohol intake: never Substance/Drug Use: never Marital status: / Current occupational status: retired Physical Exam Const: GENERAL APPEARANCE: cooperative ORIENTATION/CONSCIOUSNESS: Yes awake, Yes oriented to person, Yes oriented to place and Yes oriented to time HENMT: COMMON NORMALS: normocephalic, atraumatic and hearing grossly normal bilaterally HEAD & SCALP: normocephalic and atraumatic Resp: COMMON NORMALS: normal respiratory effort, No retractions, No use of accessory muscles and clear to auscultation bilaterally AUSCULTATION: clear to auscultation bilaterally Cardio: COMMON NORMALS: regular rate, regular rhythm and No murmurs present (Cardio) RATE: regular rate RHYTHM: regular rhythm GI: COMMON NORMALS: Soft to palpation and No hepatosplenomegaly present AUSCULTATION: Yes normoactive bowel sounds PALPATION: Yes Soft to palpation, No Tenderness to palpation present (GI), No Guarding due to palpation present (GI) and Yes No hepatosplenomegaly present Extremity: COMMON NORMALS: normal to inspection, capillary refill normal, no clubbing, cyanosis or edema, no calf tenderness and no pedal edema Neuro: SENSORIUM/ORIENTATION: Yes oriented to person, Yes oriented to place and Yes oriented to time Skin: COMMON NORMALS: no rashes or lesions noted GENERAL SKIN EXAM: no rashes or lesions noted Course Vital Signs: Vital signs: Vital Signs Temperature 97.2 F L 09/26/24 14:01 Pulse Rate 67 09/26/24 18:23 Respiratory Rate 18 09/26/24 14:01 Blood Pressure 154/92 09/26/24 18:23 Pulse Oximetry 98 09/26/24 18:23 Oxygen Delivery Me thod Room Air 09/26/24 14:01 MDM - Nausea/Vomiting/Diarrhea Medical Decision Making Cardiac enzymes and EKG are unremarkable. Patient is not having any further symptoms. She would prefer to go home. We did want to get a urine however patient had gone to the bathroom was unable to urinate. She is not having any urine symptoms prefer to go home at this point. Medical Records I reviewed the patient's medical records. Lab Data I reviewed the patient's lab results. 09/26/24 14:19 09/26/24 14:19 Radiology Impressions Chest X-Ray 09/26/24 14:10 Impression: Atherosclerosis. Laboratory Results WBC 6.60 10^3/uL (3.29-11.43) 09/26/24 14:19 RBC 4.16 10^6/uL (3.85-5.65) 09/26/24 14:19 Hgb 13.50 g/dL (11.27-16.99) 09/26/24 14:19 Hct 40.1 % (36-47) 09/26/24 14:19 MCV 96.4 fl (85-98) 09/26/24 14:19 MCH 32.5 pg (27-33) 09/26/24 14:19 MCHC 33.7 g/dL (30-55) 09/26/24 14:19 RDW 13.5 % (12.1-15.1) 09/26/24 14:19 Plt Count 161 10^3/cmm (157-399) 09/26/24 14:19 MPV 10.6 fL (7.4-10.4) H 09/26/24 14:19 Neut % (Auto) 43.0 % 09/26/24 14:19 Lymph % (Auto) 45.0 % 09/26/24 14:19 [place] % (Auto) 10.0 % 09/26/24 14:19 Eos % (Auto) 0.9 % 09/26/24 14:19 Baso % (Auto) 0.8 % 09/26/24 14:19 Neut # (Auto) 2.84 10^3/uL (1.8-7.7) 09/26/24 14:19 Lymph # (Auto) 3.0 10^3/uL (0.8-4.8) 09/26/24 14:19 [place] # (Auto) 0.7 10^3/uL (0.2-0.9) 09/26/24 14:19 Eos # (Auto) 0.1 10^3/uL (0.0-0.8) 09/26/24 14:19 Baso # (Auto) 0.1 10^3/uL (0.0-0.1) 09/26/24 14:19 Nucleated RBC % (auto) 0 % 09/26/24 14:19 Nucleated RBCs # 0.0 /100WBC 09/26/24 14:19 Sodium 140 mmol/L (136-145) 09/26/24 14:19 Potassium 3.3 mmol/L (3.5-5.1) L 09/26/24 14:19 Chloride 102 mmol/L (98-107) 09/26/24 14:19 Carbon Dioxide 25 mmol/L (22-29) 09/26/24 14:19 Anion Gap 16.3 (5-19) 09/26/24 14:19 BUN 17 mg/dL (8-23) 09/26/24 14:19 Creatinine 1.1 mg/dL (0.5-0.9) H 09/26/24 14:19 GFR Calculation Not Reportable 09/26/24 14:19 Glucose 78 mg/dL (65-115) 09/26/24 14:19 Calculated Osmolality 290 mOsm/kg (285-295) 09/26/24 14:19 Calcium 9.6 mg/dL (8.5-10.5) 09/26/24 14:19 Total Bilirubin 0.3 mg/dL (0.15-1.2) 09/26/24 14:19 AST 19 U/L (0-32) 09/26/24 14:19 ALT 10 U/L (0-33) 09/26/24 14:19 Alkaline Phosphatase 98 U/L (35-105) 09/26/24 14:19 Troponin T Baseline 28 ng/L (0-10) H 09/26/24 14:19 Troponin T 120 Minute 28.09 ng/L (0-10) H 09/26/24 16:18 Delta Troponin T 0.09 ABS# (0-10) 09/26/24 16:18 Total Protein 7.1 g/dL (6.6-8.7) 09/26/24 14:19 Albumin 4.1 g/dL (3.5-5.2) 09/26/24 14:19 Globulin 3.0 g/dL (1.3-4.6) 09/26/24 14:19 All radiology interpretation(s) finalized by discharge EKG Data EKG 1: Interpretation: Normal sinus rhythm rate of 78 SD normal [address] changes noted T waves upright. EKG 2: Interpretation: 09/26/2024 1555 artifact present no acute ST changes noted sinus rhythm rate of 64 SD interval 196. Discharge Plan Discharge Patient Disposition: Home Clinical Impression: Dyspnea on exertion Condition: Stable Prescriptions: New isosorbide mononitrate 30 mg tablet extended release 24 hr 30 mg PO DAILY Qty: 30 0RF aspirin 81 mg tablet,delayed release (DR/EC) 81 mg PO DAILY Qty: 30 0RF No Action amlodipine 2.5 mg tablet 2.5 mg PO DAILY tramadol 50 mg tablet 100 mg PO BID PRN (Reason: Pain (Scale Score 7-10)) albuterol sulfate 90 mcg/actuation HFA aerosol inhaler 2 puff inhalation Q6H PRN (Reason: shortness of breath or wheezing) Qty: 8.5 0RF alprazolam 0.25 mg tablet 0.25 mg PO BID@0800,2100 acetaminophen [Tylenol] 325 mg tablet 325 mg PO Q6H Qty: 30 0RF Discharge Orders: Discharge ED (Routine); Ordered 09/26/24 Ordered By: Lee Mcmahan Referrals: Lorenzo Hirsch DO [Primary Care Provider] - Discharge Diet: Usual diet Discharge Activity: Resume usual activity Patient Instructions: Opioid Safety, Pain Management Activity Restrictions/Additional Instructions: Thank you for choosing [facility] for your healthcare needs today. It is very important that you follow up as instructed or that you return to the Emergency Department should you have concerns or if your condition changes or worsens in any way. You were seen in the emergency room with complaint chest discomfort and shortness of breath. EKG and cardiac enzymes not show any acute changes, your blood pressure was mildly elevated recommend starting isosorbide mononitrate 30 mg once daily also take a baby aspirin daily will set you up for an outpatient stress test. Print Language: Swiss Coding Level of Care Code ED Professional Bass Fisher for Laura Gregory
[2024-09-26 14:32] LABS: Basophils # 0.1 10^3/uL (0.0-0.1); Basophils % 0.8 %; Eosinophils # 0.1 10^3/uL (0.0-0.8); Eosinophils % 0.9 %; Hematocrit 40.1 % (36-47); Mean Corpuscular HGB Conc 33.7 g/dL (30-55); Mean Corpuscular Hemoglobin 32.5 pg (27-33); Mean Corpuscular Volume 96.4 fl (85-98); Mean Platelet Volume 10.6 fL (7.4-10.4); Monocytes # 0.7 10^3/uL (0.2-0.9); Neutrophils # 2.84 10^3/uL (1.8-7.7); Nucleated Red Blood Cells % 0 %; Platelet Count 161 10^3/cmm (157-399); Red Blood Count 4.16 10^6/uL (3.85-5.65); Red Cell Distribution Width 13.5 % (12.1-15.1)
[2024-09-26 14:48] LABS: Alanine Aminotransferase 10 U/L (0-33); Albumin Level 4.1 g/dL (3.5-5.2); Alkaline Phosphatase 98 U/L (35-105); Anion Gap 16.3 (5-19); Aspartate Amino Transferase 19 U/L (0-32); Blood Urea Nitrogen 17 mg/dL (8-23); Calcium 9.6 mg/dL (8.5-10.5); Carbon Dioxide 25 mmol/L (22-29); Chloride 102 mmol/L (98-107); Creatinine Clr Calc Pharmacy 34.5064; Glucose 78 mg/dL (65-115); Osmolality Calculated 290 mOsm/kg (285-295); Potassium 3.3 mmol/L (3.5-5.1); Sodium 140 mmol/L (136-145); Total Bilirubin 0.3 mg/dL (0.15-1.2); Total Protein 7.1 g/dL (6.6-8.7); Troponin(5th) Baseline 28 ng/L (0-10)
[2024-09-26] MEDS: aspirin 81 mg Chew Tablet 324 MG PO (14:50)
[2024-09-26 15:43] VITALS: BP 146/73; PULSE 66; O2SAT 93
--- NOTE | 2024-09-26 16:10 | ECG_ITS ---
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 Measurements Intervals [place] Rate: 64 P: 63 VA: 196 QRS: 1 QRSD: 96 T: 75 QT: 417 QTc: 433 Interpretive Statements SINUS RHYTHM INDETERMINATE AXIS LOW QRS VOLTAGE IN PRECORDIAL LEADS [QRS DEFLECTION < 1.0 mV IN CHEST LEADS] POSSIBLE ANTERIOR MYOCARDIAL INFARCTION , PROBABLY OLD [30 ms Q WAVE IN V3/V4, OR R < 0.2 mV IN V4] Compared to ECG 09/26/2024 14:25:32 Sinus arrhythmia no longer present ST (T wave) deviation no longer present Electronically Signed On 09-27-2024 13:36:08 CDT by Mitch Bustamante M.D. [id number]
[2024-09-26 16:41] LABS: Troponin 5 2HR 28.09 ng/L (0-10); Troponin 5 2HR Delta 0.09 ABS# (0-10)
--- NOTE | 2024-09-26 16:56 | PC.NURSE ---
pt ambulated to bathroom well, informed Dr. Mcmahan
[2024-09-26 17:00] VITALS: BP 146/89; BP 150/100; BP 170/90; PULSE 68; PULSE 70; PULSE 72
[2024-09-26 18:23] VITALS: BP 154/92; PULSE 67; O2SAT 98
[2024-09-26] MEDS: isosorbide mononitrate ER 30 mg Tablet PO (18:23)
== END 2024-09-26 18:24 | disposition home or self-care (01) ==
PROVIDERS: Emergency Provider Family Medicine; PCP Electrodiagnostic Medicine
DX: R06.00 Dyspnea, unspecified (principal); Z72.0 Tobacco use
CPT/HCPCS: 36415; 71045; 80053; 84484; 85025; 93005; 99285; J9999

== ENCOUNTER 2024-10-15 09:57 | Outpatient (CLI) | payer MEDICARE, SELFPAY ==
--- NOTE | 2024-10-15 10:00 | CT_ITS ---
WS: [id number] CT chest wo con [id number] HISTORY: CHRONIC BRONCHITIS TECHNIQUE: Axial imaging performed through the thorax. Coronal and sagittal reformats are submitted. All CT scans at [facility] use at least one of these dose optimization techniques: automated exposure control; mA and/or kV adjustment per patient size (includes targeted exams where dose is matched to clinical indication); or iterative reconstruction. CONTRAST: None DLP: 215.81 mGy.cm COMPARISON: 05/29/2017 CT, radiograph 09/26/2024 Lungs and central airway: Moderate hyperinflation. No pulmonary mass or nodule. Benign calcified granuloma superior segment RIGHT lower lobe. No bronchial wall thickening identified but this is not high-resolution CT. No areas of groundglass attenuation or mass. Pleura: Normal. No pleural effusion. Heart and pericardium: Normal size heart with no pericardial effusion. Mediastinum and luis: Calcified and noncalcified mediastinal and hilar lymph nodes. No pathologically enlarged nodes. Vessels: Moderate scattered atherosclerotic plaque within the aorta. Thoracic aorta is ectatic but not aneurysmal. No pulmonary artery dilatation. Chest wall and lower neck: No soft tissue masses. Upper abdomen: Moderate size hiatal hernia. Suprarenal aortic calcification. Lobulated cystic mass from the superior pole LEFT kidney was noted to be related to severe hydronephrosis of the LEFT kidney with cortical thinning. Additional low-attenuation masses superior pole RIGHT kidney also noted on the CT of 11/05/2023. No adrenal mass. Splenic and hepatic granulomata. Osseous structures: Mild increase in thoracic kyphosis. Advanced degenerative changes of disc space narrowing and hypertrophic osteophytes. CT/CT chest wo con [id number] IMPRESSION: 1. Chronic emphysema. No bronchial wall thickening or mass identified. 2. No mediastinal or hilar pathologically enlarged lymph nodes. 3. Moderate size hiatal hernia. 4. Cystic masses superior pole of each kidney. Patient has no LEFT hydronephro sis with diffuse cortical thinning as previously described. 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
== END 2024-10-15 09:58 | disposition home or self-care (01) ==
LOC: RAD 09:58
PROVIDERS: PCP Electrodiagnostic Medicine; Visit Provider Electrodiagnostic Medicine
DX: J42 Unspecified chronic bronchitis (principal); J43.8 Other emphysema; K44.9 Diaphragmatic hernia without obstruction or gangrene; N28.89 Other specified disorders of kidney and ureter; R91.8 Other nonspecific abnormal finding of lung field; J84.10 Pulmonary fibrosis, unspecified; R59.0 Localized enlarged lymph nodes; I70.0 Atherosclerosis of aorta; I77.810 Thoracic aortic ectasia; D73.89 Other diseases of spleen; K75.3 Granulomatous hepatitis, not elsewhere classified; M40.294 Other kyphosis, thoracic region; M51.34 Other intervertebral disc degeneration, thoracic region; M25.78 Osteophyte, vertebrae
CPT/HCPCS: 71250

== ENCOUNTER 2024-11-27 13:38 | Outpatient (CLI) | payer MEDICARE, SELFPAY ==
[2024-11-27 14:01] VITALS: PULSE 82; RESP 18; O2SAT 99
[2024-11-27] MEDS: albuterol 2.5 mg/3 mL Neb INHALATION (14:01)
== END 2024-11-27 13:39 | disposition home or self-care (01) ==
LOC: RT 13:39
PROVIDERS: PCP Electrodiagnostic Medicine; Visit Provider Electrodiagnostic Medicine
DX: J43.9 Emphysema, unspecified (principal); J98.8 Other specified respiratory disorders; R94.2 Abnormal results of pulmonary function studies
CPT/HCPCS: 94060; 94726; 94729